=== PATIENT | female | born 1930 | race Caucasian/White ===

== ENCOUNTER 2016-11-29 19:32 | Inpatient (IN) ==
--- NOTE | 2016-11-29 19:41 | Emergency Department Note ---
Disposition Clinical Impression: Syncope and collapse, Atrial fibrillation with RVR, Dementia, Confusion, Elevated troponin, Head injury, Frail elderly, Hyperthyroidism Disposition: Admitted As Inpatient Referrals: Unassigned,Provider [Primary Care Provider] - Forms: ED Satisfaction Letter General Adult HPI - General Chief complaint: ED Syncope Stated complaint: Syncope/AMS Time Seen by Provider: 11/29/16 19:38 Source: EMS Limitations: altered mental status - History of Present Illness HPI Narrative: 86-year-old female reports that emergency department via EMS. The patient reportedly has a history of dementia but is generally capable of self-care. She went into [employer] this evening and was standing in line and had a witnessed syncopal event. She fell and hit her head. She was unconscious for a period of time EMS was notified and arrived at the scene, the patient revived and brought into the ED. On arrival the patient has no complaints, she does not really remember the events. She is not able to identify place or time, she does know her name. The patient denies any chest pain short of breath or abdominal pain. There is no history of neck pain or back pain. No history of antecedent cough and fever runny nose or pain sore throat vomiting diarrhea or fever. There is no history of headache neck stiffness rash bowel or bladder dysfunction or any trouble walking talking hearing seeing or speaking. No unilateral arm or leg numbness or weakness is reported or noted. There is no history of laceration or bleeding. The patient is unable to give a clear history, however witnesses report she [place] her [place]. The patient denies any complaints or concerns at this time. Onset (ago): [employer] Pain Scale: 0 - Related Data Previous Rx's Medication Instructions Recorded Acetaminophen [Tylenol] 325 mg PO Q6HR PRN #10 tablet 01/01/16 Ibuprofen [Motrin] 400 mg PO Q6-8H PRN #30 tablet 09/04/16 Sulfamethoxazole/Trimeth DS 1 each PO BID #10 tablet 11/27/16 [Bactrim DS] Allergies Allergy/AdvReac Type Severity Reaction Status Date / Time No Known Allergies Allergy Verified 11/29/16 19:33 Limitations: ROS unobtainable due to patients medical condition Past Medical History - Past Medical History Medical history: Reports: non-contributory, dementia Psychiatric history: Reports: no psych history - Social History Smoking Status: Never smoker Smokeless Tobacco Status: No Alcohol use: Reports: none Drug use: Reports: none Physical Exam - General Limitations: altered mental status, other (The patient is talkative but rambles and is apparently confused, she is alert and oriented to name only.) General appearance: alert, in no apparent distress - Head Head exam: atraumatic, normocephalic, normal inspection - Eye Eye exam: Present: normal appearance, PERRL, EOMI. Absent: scleral icterus, conjunctival injection, miosis, mydriasis - ENT ENT exam: normal exam, normal oropharynx, mucous membranes moist, TM's normal bilaterally, normal external ear exam - Neck Neck exam: Present: normal inspection, full ROM, trachea midline. Absent: tenderness, meningismus - Chest Chest inspection: Present: symmetric chest wall rise. Absent: tenderness - Respiratory Respiratory exam: Present: normal lung sounds bilaterally. Absent: respiratory distress - Cardiovascular Cardiovascular exam: Present: tachycardia, irregular rhythm - Abdominal Exam Abdominal exam: Present: soft, Non-Tender, normal bowel sounds. Absent: tenderness, distention, guarding, rebound, rigidity, trauma, pulsatile mass - Extremities Exam Extremities exam: Present: normal inspection, full ROM, normal capillary refill. Absent: tenderness, pedal edema, joint swelling, calf tenderness - Expanded Lower Extremity Exam Lower leg exam: Absent: Homans' sign Neurovascular/Tendon exam: Absent: motor deficit, sensory deficit, tendon deficit, extremity cold to touch, pallor - Back Exam Back exam: Present: normal inspection, full ROM. Absent: tenderness, CVA tenderness (R), CVA tenderness (L), vertebral tenderness - Neurological Exam Neurological exam: Present: alert, CN II-XII intact. Absent: oriented X3 ( Alert to name only.), motor sensory deficit - Psychiatric Psychiatric exam: Present: normal affect - Skin Skin exam: Present: warm, dry, intact, normal color. Absent: rash, cyanosis, diaphoresis, erythema, pallor, mottled Course Vital Signs Temperature 98.1 F 11/29/16 19:33 Pulse Rate 134 11/29/16 19:33 Respiratory Rate 16 11/29/16 19:33 Blood Pressure 102/87 11/29/16 19:33 O2 Sat by Pulse Oximetry 100 11/29/16 19:33 Temperature 98.1 F 11/29/16 19:33 Pulse Rate 152 11/29/16 21:14 Respiratory Rate 15 11/29/16 21:14 Blood Pressure 122/94 11/29/16 21:14 O2 Sat by Pulse Oximetry 96 11/29/16 21:14 Oxygen Delivery Oxygen Delivery Room Air Medical Decision Making - [facility] Narrative Medical decision making narrative: The patient had a syncopal event at [facility] and hit her head. There is no evidence of acute intracranial hemorrhage. The patient denies any chest pain. We have noticed her heart rate to be significantly elevated and she appears to be in atrial fibrillation with rapid ventricular response. She has some ST depressions and a significantly elevated troponin. Aspirin was ordered. Cardizem was initially ordered. The patient has no acute neurologic defects. She had a witnessed syncopal event. It appears to be a cardiogenic source. Based on her significant EKG and laboratory abnormalities as well as notable confusion, I thought it would be best to admit the patient to the hospital. I reviewed the case with the hospitalist on-call Dr. Dickinson who has accepted the patient to his care. The patient was given Cardizem 5 mg IV and a 5 mg/hr drip, Dr. Dickinson has asked for a 5 mg push of Lopressor as well. - Lab Data Lab results reviewed: Yes I reviewed the patient's lab results. Result diagrams: 11/29/16 19:52 11/29/16 19:52 Lab Results 11/29/16 11/29/16 11/29/16 Range/Units 19:52 19:52 19:52 WBC 14.7 H (4.3-11.1) K/mcL RBC 4.68 (3.82-4.97) M/mcL Hgb 13.3 (11.5-15.4) g/dL Hct 42.7 (35.3-44.9) % MCV 91.2 (83.0-100.0) fL MCH 28.4 (28.0-33.3) pg MCHC 31.1 L (31.6-35.5) g/dL RDW 13.1 (11.5-14.5) % Plt Count 248 (140-400) K/mcL MPV 11.5 (9.4-12.4) fL Immature Gran % 0.3 (0-4) % Seg Neutrophils % 79.9 % Lymphocytes % 12.2 % Monocytes % 6.1 % Eosinophils % 1.0 % Basophils % 0.5 % Neutrophils # 11.8 H (1.6-8.9) K/mcL Lymphocytes # 1.8 (0.6-4.6) K/mcL Monocytes # 0.9 (0.0-1.3) K/mcL Eosinophils # 0.1 (0.0-0.6) K/mcL Basophils # 0.1 (0.0-0.2) K/mcL PT 10.7 (9.4-12.1) Seconds INR 1.0 APTT 27.9 (26.0-36.0) Seconds Sodium 139 (136-145) mEq/L Potassium 4.4 (3.5-4.5) mEq/L Chloride 105 (98-109) mEq/L Carbon Dioxide 23 (19-29) mEq/L BUN 18 (7-20) mg/dL Creatinine 0.81 (0.57-1.11) mg/dL Est GFR ( Amer) > 60 (> 60) Est GFR (Non-Af Amer) > 60 (> 60) BUN/Creatinine Ratio 22 (6-26) Glucose 151 H (70-99) mg/dL POC Glucose (58-89) Calculated Osmolality 293 (280-300) Lactic Acid (0.5-2.2) mmol/L Calcium 9.4 (8.6-10.8) mg/dL Total Bilirubin 0.4 (0.2-1.2) mg/dL Direct Bilirubin 0.2 (0.0-0.5) mg/dL Indirect Bilirubin 0.2 (0.0-1.2) mg/dL AST 76 H (5-34) Units/L ALT 40 (0-55) Units/L Alkaline Phosphatase 87 (38-126) Units/L Ammonia (18-72) mcmol/L Creatine Kinase 279 H (29-168) Units/L Troponin I (0-0.03) ng/mL C-Reactive Protein 2 (Less than 5) mg/L Serum Total Protein 7.3 (6.0-8.3) g/dL Albumin 3.5 (3.5-5.0) g/dL Globulin 3.8 H (2.4-3.5) g/dL Albumin/Globulin Ratio 0.9 L (1.1-2.2) TSH 0.244 L (0.350-4.840) mcIU/mL Salicylates < 5.0 L (15-30) mg/dL Acetaminophen < 1.0 L (10-30) mcg/mL 11/29/16 11/29/16 11/29/16 Range/Units 19:52 19:52 19:52 WBC (4.3-11.1) K/mcL RBC (3.82-4.97) M/mcL Hgb (11.5-15.4) g/dL Hct (35.3-44.9) % MCV (83.0-100.0) fL MCH (28.0-33.3) pg MCHC (31.6-35.5) g/dL RDW (11.5-14.5) % Plt Count (140-400) K/mcL MPV (9.4-12.4) fL Immature Gran % (0-4) % Seg Neutrophils % % Lymphocytes % % Monocytes % % Eosinophils % % Basophils % % Neutrophils # (1.6-8.9) K/mcL Lymphocytes # (0.6-4.6) K/mcL Monocytes # (0.0-1.3) K/mcL Eosinophils # (0.0-0.6) K/mcL Basophils # (0.0-0.2) K/mcL PT (9.4-12.1) Seconds INR APTT (26.0-36.0) Seconds Sodium (136-145) mEq/L Potassium (3.5-4.5) mEq/L Chloride (98-109) mEq/L Carbon Dioxide (19-29) mEq/L BUN (7-20) mg/dL Creatinine (0.57-1.11) mg/dL Est GFR ( Amer) (> 60) Est GFR (Non-Af Amer) (> 60) BUN/Creatinine Ratio (6-26) Glucose (70-99) mg/dL POC Glucose (58-89) Calculated Osmolality (280-300) Lactic Acid 1.5 (0.5-2.2) mmol/L Calcium (8.6-10.8) mg/dL Total Bilirubin (0.2-1.2) mg/dL Direct Bilirubin (0.0-0.5) mg/dL Indirect Bilirubin (0.0-1.2) mg/dL AST (5-34) Units/L ALT (0-55) Units/L Alkaline Phosphatase (38-126) Units/L Ammonia 18 (18-72) mcmol/L Creatine Kinase (29-168) Units/L Troponin I 3.82 H* (0-0.03) ng/mL C-Reactive Protein (Less than 5) mg/L Serum Total Protein (6.0-8.3) g/dL Albumin (3.5-5.0) g/dL Globulin (2.4-3.5) g/dL Albumin/Globulin Ratio (1.1-2.2) TSH (0.350-4.840) mcIU/mL Salicylates (15-30) mg/dL Acetaminophen (10-30) mcg/mL 11/29/16 Range/Units 19:58 WBC (4.3-11.1) K/mcL RBC (3.82-4.97) M/mcL Hgb (11.5-15.4) g/dL Hct (35.3-44.9) % MCV (83.0-100.0) fL MCH (28.0-33.3) pg MCHC (31.6-35.5) g/dL RDW (11.5-14.5) % Plt Count (140-400) K/mcL MPV (9.4-12.4) fL Immature Gran % (0-4) % Seg Neutrophils % % Lymphocytes % % Monocytes % % Eosinophils % % Basophils % % Neutrophils # (1.6-8.9) K/mcL Lymphocytes # (0.6-4.6) K/mcL Monocytes # (0.0-1.3) K/mcL Eosinophils # (0.0-0.6) K/mcL Basophils # (0.0-0.2) K/mcL PT (9.4-12.1) Seconds INR APTT (26.0-36.0) Seconds Sodium (136-145) mEq/L Potassium (3.5-4.5) mEq/L Chloride (98-109) mEq/L Carbon Dioxide (19-29) mEq/L BUN (7-20) mg/dL Creatinine (0.57-1.11) mg/dL Est GFR ( Amer) (> 60) Est GFR (Non-Af Amer) (> 60) BUN/Creatinine Ratio (6-26) Glucose (70-99) mg/dL POC Glucose 136 H (58-89) Calculated Osmolality (280-300) Lactic Acid (0.5-2.2) mmol/L Calcium (8.6-10.8) mg/dL Total Bilirubin (0.2-1.2) mg/dL Direct Bilirubin (0.0-0.5) mg/dL Indirect Bilirubin (0.0-1.2) mg/dL AST (5-34) Units/L ALT (0-55) Units/L Alkaline Phosphatase (38-126) Units/L Ammonia (18-72) mcmol/L Creatine Kinase (29-168) Units/L Troponin I (0-0.03) ng/mL C-Reactive Protein (Less than 5) mg/L Serum Total Protein (6.0-8.3) g/dL Albumin (3.5-5.0) g/dL Globulin (2.4-3.5) g/dL Albumin/Globulin Ratio (1.1-2.2) TSH (0.350-4.840) mcIU/mL Salicylates (15-30) mg/dL Acetaminophen (10-30) mcg/mL - Radiology Data Radiology results reviewed: Yes I reviewed the patient's radiology results.
[2016-11-29 20:00] LABS: Basophils # 0.1 K/mcL (0.0-0.2); Basophils % 0.5 %; Eosinophils # 0.1 K/mcL (0.0-0.6); Hematocrit 42.7 % (35.3-44.9); Hemoglobin 13.3 g/dL (11.5-15.4); Immature Granulocytes % 0.3 % (0-4); Lymphocytes # 1.8 K/mcL (0.6-4.6); Lymphocytes % 12.2 %; Mean Corpuscular HGB Conc 31.1 g/dL (31.6-35.5); Mean Corpuscular Hemoglobin 28.4 pg (28.0-33.3); Mean Corpuscular Volume 91.2 fL (83.0-100.0); Mean Platelet Volume 11.5 fL (9.4-12.4); Monocytes # 0.9 K/mcL (0.0-1.3); Monocytes % 6.1 %; Neutrophils # 11.8 K/mcL (1.6-8.9); Platelet Count 248 K/mcL (140-400); Red Blood Count 4.68 M/mcL (3.82-4.97); Red Cell Distribution Width 13.1 % (11.5-14.5); Segmented Neutrophils % 79.9 %
[2016-11-29 20:05] LABS: Prothrombin Time 10.7 Seconds (9.4-12.1)
[2016-11-29 20:08] LABS: Activated Partial Thrombo Time 27.9 Seconds (26.0-36.0)
[2016-11-29] MEDS ORDERED: 0.9 % Sodium Chloride 1,000 ML IVC ONE (20:12)
[2016-11-29 20:14] LABS: C-Reactive Protein 2 mg/L (Less than 5)
[2016-11-29 20:16] LABS: Alanine Aminotransferase 40 Units/L (0-55); Albumin 3.5 g/dL (3.5-5.0); Albumin/Globulin Ratio 0.9 (1.1-2.2); Alkaline Phosphatase 87 Units/L (38-126); Aspartate Amino Transferase 76 Units/L (5-34); BUN/Creatinine Ratio 22 (6-26); Bilirubin,Direct 0.2 mg/dL (0.0-0.5); Bilirubin,Indirect 0.2 mg/dL (0.0-1.2); Bilirubin,Total 0.4 mg/dL (0.2-1.2); Blood Urea Nitrogen 18 mg/dL (7-20); Calcium 9.4 mg/dL (8.6-10.8); Carbon Dioxide 23 mEq/L (19-29); Chloride 105 mEq/L (98-109); Creatine Kinase 279 Units/L (29-168); Globulin 3.8 g/dL (2.4-3.5); Glucose 151 mg/dL (70-99); Osmolality,Calculated 293 (280-300); Potassium 4.4 mEq/L (3.5-4.5); Sodium 139 mEq/L (136-145); Total Protein 7.3 g/dL (6.0-8.3); eGFR For African Americans > 60 (> 60); eGFR For Non-African Americans > 60 (> 60)
[2016-11-29 20:17] LABS: Acetaminophen < 1.0 mcg/mL (10-30); Salicylate < 5.0 mg/dL (15-30)
[2016-11-29] MEDS ORDERED: Aspirin 325 MG TABLET PO ONE (20:25)
[2016-11-29 20:36] LABS: Thyroid Stimulating Hormone 0.244 mcIU/mL (0.350-4.840)
[2016-11-29] MEDS ORDERED: *HR* Metoprolol 5 MG/5 ML VIAL IVP ONE (21:14)
[2016-11-29] MEDS ORDERED: 0.9 % Sodium Chloride 1,000 ML ONE (22:56)
[2016-11-30] MEDS ORDERED: *HR* OxyCODONE Immed Rel 5 MG TABLET PO PRN (00:21)
[2016-11-30] MEDS ORDERED: *HR* Heparin 5,000 UNIT/ML VIAL IVP PRN ×2 (00:21)
[2016-11-30] MEDS ORDERED: Ondansetron 4 MG/2 ML VIAL IVP PRN (00:21)
[2016-11-30] MEDS ORDERED: Acetaminophen 325 MG TABLET PO PRN (00:21)
[2016-11-30] MEDS ORDERED: Nitroglycerin 0.4 MG TAB.SUBL SL PRN (00:21)
[2016-11-30] MEDS ORDERED: *HR* Morphine 2 MG/ML SYRINGE IVP PRN (00:21)
[2016-11-30] MEDS ORDERED: Benzonatate 100 MG CAPSULE PO PRN (00:21)
[2016-11-30] MEDS ORDERED: *HR* Metoprolol 5 MG/5 ML VIAL IVP PRN (00:21)
[2016-11-30] MEDS ORDERED: Aspirin Enteric Coated 325 MG Tablet PO STA (00:21)
[2016-11-30] MEDS ORDERED: *HR* Heparin 5,000 UNIT/ML VIAL IVP ONE (00:21)
[2016-11-30] MEDS ORDERED: Naloxone 0.4 MG/ML INJ IVP PRN (00:21)
[2016-11-30] MEDS ORDERED: 0.9 % Sodium Chloride 1,000 ML IVC SCH (00:30)
--- NOTE | 2016-11-30 00:48 | Internal Med History&Physical ---
Date of Encounter: 11/29/16 Time of Encounter: 23:50 Assessment and Plan (1) Syncope due to orthostatic hypotension Current visit: Yes Status: Acute . (2) Syncope, cardiogenic Current visit: Yes Status: Acute . (3) Demand ischemia of myocardium Current visit: Yes Status: Acute . (4) Non-ST elevation myocardial infarction (NSTEMI) due to mismatch of myocardial oxygen supply and demand Current visit: Yes Status: Acute . (5) Acute encephalopathy Current visit: Yes Status: Acute . (6) Closed head injury Current visit: Yes Status: Acute . Qualifiers: Encounter type: initial encounter Qualified Code(s): S09.90XA - Unspecified injury of head, initial encounter (7) Dementia arising in the senium and presenium Current visit: Yes Status: Chronic . (8) Elevated CPK Current visit: Yes Status: Acute . (9) Elevated troponin I measurement Current visit: Yes Status: Acute . (10) Atrial fibrillation with RVR Current visit: Yes Status: Acute . (11) Frail elderly Current visit: Yes Status: Acute . (12) Hyperthyroidism Current visit: Yes Status: Acute . (13) Syncope and collapse Current visit: Yes Status: Acute . (14) Abrasion Current visit: Yes Status: Acute . (15) SIRS (systemic inflammatory response syndrome) Current visit: Yes Status: Acute . (16) Diastolic CHF Current visit: Yes Status: Chronic . Qualifiers: Congestive heart failure chronicity: chronic Qualified Code(s): I50.32 - Chronic diastolic (congestive) heart failure (17) COPD (chronic obstructive pulmonary disease) Current visit: Yes Status: Chronic . Qualifiers: COPD type: unspecified COPD Qualified Code(s): J44.9 - Chronic obstructive pulmonary disease, unspecified (18) Recent urinary tract infection Current visit: Yes Status: Acute . (19) Acute maxillary sinusitis, unspecified Current visit: Yes Status: Acute . Qualifiers: Recurrence: not specified as recurrent Qualified Code(s): J01.00 - Acute maxillary sinusitis, unspecified (20) DDD (degenerative disc disease), cervical Current visit: Yes Status: Chronic . Internal Medicine - H&P: HPI Chief complaint: Mental status. Loss of consciousness. Admitted From: Emergency Dept Plans for Post Hospital Care: Home History of present illness: Ms. Mcdermott is a 86 year old female history significant for mild dementia unspecified, diastolic CHF, COPD, osteoarthritis, osteoporosis, degenerative disc disease of the spine, nonsmoker. The patient was visited and interviewed and examined. She was admitted to [facility] via the emergency department when she presented by EMS services from a local grocery store with complaints of loss of consciousness. The patient has a history of mild dementia but generally is careful of self-care , maintenance of her day-to-day needs of daily living, transportation etc. Lives alone. 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 She reports being at her normal baseline status prior to today's events. Had recently been prescribed an sulfa antibiotic to address a urinary tract infection which she believes she had never taken before. Approximately 3 hours later she was standing in line at [employer] and had an acute syncopal event which was witnessed by bystanders. She fell and hit her head. She was reportedly been unconscious for a period of time. The arrival of EMS services. When he arrived at the scene the patient had profile and was brought to the emergency department for further evaluation. She reported no complaints other than amazement of what had occurred. She was unable to remember the events leading up to and following loss of consciousness. Initially she was unable to express her name the place or time when confronted. He denies any limiting pains or weakness. Denied chest pain shortness of breath abdominal pain neck pain and flank pain and back pain. She denied any antecedent upper respiratory complaints such as cough, runny nose throat fever. Denied any nausea vomiting or diarrhea complaints. She denied any recent episodes of severe headache and stiff neck bowel or bladder dysfunction walking speaking during seeing the memory deficits. Today's events. She denied any unilateral weakness numbness or seizure-like activity. Denies any ongoing medical treatments or any over-the- counter or recreational indiscretions. Findings In the ED: Temperature 98.1 pulse 130-152 respirations 16 BP 100-122/87-94. O2 saturation 96-100% room air. Heart rhythm was irregularly irregular consistent with atrial fibrillation with RVR. WBC 14.7 hemoglobin 13.3 platelets 248,000. Differential showed an increase in neutrophils. PT 10.7 INR 1 PTT 27.9. Metabolic panel was normal. BUN 18 creatinine 0.81. Glucose 151 and osmolality 293. AST 76. C-reactive protein 2. Creatinine kinase 279. TSH 0.4. Salicylates less than 5. Acetaminophen less than 1. Lactic acid 1.5. Ammonia 18. Troponin 3.82. EKG demonstrated nonspecific ST-T wave changes in the setting of atrial fibrillation. Chest x-ray demonstrated no acute cardiopulmonary process. Cardiomegaly with atherosclerotic changes of the aorta was evident. Chronic appearing bilateral interstitial opacities noted in the salon as well as bilateral emphysematous changes. Osseous structures demonstrated that the extra convex to the thoracic spine but no acute fracture. Structures were osteopenic. Hydroxyapatite deposition of the right shoulder noted incidentally. CT head scan without contrast demonstrated mild left temporal scalp subcutaneous soft tissue swelling. No acute intracranial abnormality. Mild parenchymal volume loss. Moderate chronic microvascular disease. Right maxillary sinusitis. No acute intracranial hemorrhage, mass effect, midline shift or fluid collection. No evidence of acute territorial infarction. No evidence of hydrocephalus. Partial opacification of the right maxillary sinus. Retention cyst versus polyp left maxillary sinus. Remainder of paranasal sinuses and mastoid air cells mostly clear. No evidence of acute skull fracture. CT cervical spine without contrast demonstrated no acute abnormality of the cervical spine. Mild height loss of T1 vertebral body, although age indeterminate, likely chronic. Mild chronic height loss C5, C6 and C7 vertebral bodies. Osteopenia. 3 date of normal cervical lordosis. No evidence of acute cervical spine fracture. Normal alignment of the cervical spine. Multilevel degenerative disc disease with disc space narrowing, endplate changes and endplate osteophyte formation. No prevertebral soft tissue swelling noted. Mild to moderate atherosclerotic disease of the aortic arch and bilateral carotid bulbs noted incidentally. The patient was administered the aspirin dose plus Cardizem drip initiated for rate control. ( No acute neurologic deficits were apparent short of patient's disorientation found to gradually improve at triage.) Preliminary impression suggest acute, new onset atrial fibrillation RVR associated with ACS/non-ST elevation myocardial infarction type II demand ischemia with associated cardiogenic syncope. Medication may have been elicited by concurrent laboratory response to apparent urinary tract and maxillary sinus infections to the Bactrim DS doses taken earlier in the day. She denied any prodromal complaints of postural dizziness weakness shortness of air or acute incapacitation. Screening studies suggest systemic inflammatory response syndrome criteria are met at the time of admission. Given the presence of the sinusitis and and UTI per patient report (urinalysis pending) sepsis criteria and also met at time of admission. He was a trauma experienced with her syncope was minimal. Disorientation seen may indeed be a reflection of her underlying dementia plus or syncope. Cannot rule out completely postconcussion syndrome effect at this time. Further assessment is warranted. The patient presents at further risk for acute clinical decline and morbidity given this presenting similar problems , clinical findings, advanced age, frailty and comorbidities. Workup and treatment will progress comprehensively. Cumulative laboratory and radiographic data base was reviewed, considered and discussed. Pertinent ancillary medical records including ECW and PCI documentation was reviewed and considered. Given the patient's presenting concerns, past medical history, clinical findings and symptoms, she is admitted at this time will undergo further evaluation and disposition. Orders were written as per the computerized physician stock order lister system.......................................................................... .................... Consultative opinions will be sought as clinical circumstances justify. Initial consultative request submitted to cardiology. Pain management needs will be addressed. community services manager/case management consultation will be requested to assist in discharge planning goals, establishment of continuity of care needs and final disposition. Laboratory and radiographic data base will be updated as appropriate. Studies include: Cultures blood and urine and sputum, PT/INR, APTT, cardiac injury panel , BNP, CPK, prolactin, metabolic and hematologic panel, magnesium, phosphorus, ionized calcium, thyroid panel, lipid profile, A1c, C-peptide, CRP, sedimentation rate, respiratory infection profile, respiratory virus panel, blood gas, lactic acid, UA, serologies, etc. Precautions: Aspiration, fall, seizure, delirium protocol/surveillance initiated. Telemetry with continuous hemodynamic monitoring and pulse oximetry initiated. Orthostatic vital signs. Empiric antibody coverage: Intravenous Rocephin and azithromycin pending culture data. Special studies: CT chest, CT head/brain, CT cervical spine, chest x-ray, telemetry, EKG, echocardiogram, carotid US, bladder scan, postvoid. Pulmonary toilet: Incentive spirometry. Aerosol bronchodilator, mucolytic, antitussive. Supplemental oxygen. Corticosteroid therapy PRN. CPAP/BiPAP supplemental oxygen deliveryPRN. Aerosol Mucomyst therapyPRN. Fluid and electrolyte repletion efforts will proceed. Careful attention to fluid balance and renal recovery will be emphasized. Avoidance of nephrotoxic exposure and adverse drug drug interaction in the setting of impaired renal function will be monitored closely. Acute coronary syndrome protocol/surveillance initiated. Intravenous diltiazem loading dose and diltiazem drip initiated for rate control. Intravenous digoxin titration 3. Correction of metabolic and electrolyte deficits. Intravenous heparin drip, low dose ACS protocols initiated. DVT and PUD prophylaxis initiated: PPI therapy, intermittent pneumatic cuffs. Subcutaneous heparin was held due to thrombocytopenia. Early ambulation will be encouraged. Immunization updates recommended. Influenza and pneumococcal vaccinations as part of ongoing preventative healthcare recommendations strongly recommended. Smoking cessation counseling briefly addressed. Patient is a nonsmoker. Advanced care directive discussion briefly addressed. Patient does not declare any healthcare restrictions at this time. Cardiovascular risk appraisal and cardiovascular risk reduction efforts will be emphasized. Physical and occupational therapy may be consulted to evaluate patient's functional capacity and progress mobility if her circumstances justify. Nutrition/dietary education counseling may be considered as circumstances permit. Outpatient medication schedules will be reviewed, confirmed and facilitated as appropriate. Reconciliation of home treatments including adjustments, substitutions and reintroduction into the treatment regimen will address necessary maintenance therapies for chronic pre-existing medical conditions. Plan of care has been reviewed and discussed in detail with the patient. Questions addressed. Hospital course will depend upon clinical findings, treatment response and potential consultative interventions. Patient is at risk for further acute clinical decline and morbidity due to her advanced age, presenting chief complaints, findings and comorbidities. Condition is serious. Prognosis is guarded. CODE STATUS is full. Past Med Surg Social Fam HX - Past Medical History Source: old records reviewed Medical history: arthritis, CHF, COPD, dementia, osteoporosis, other Psychiatric history: no psych history, other - Past Surgical History Surgical History: non-contributory, other - Social History Smoking Status: Never smoker Smokeless Tobacco Status: No Alcohol use: none Drug use: none Occupational status: retired Current living situation: Home - Independent Activity Level: Independent ambulation, Mostly sedentary Recent Out of Country Travel Within the Last 8 Weeks: No Exposure or Possible Exposure to Illness During Travel: No - Family History Mother Living Status: Internal Medicine - H&P: Meds Acetaminophen [Tylenol] 325 mg PO Q6HR PRN #10 tablet 01/01/16 [Rx] Ibuprofen [Motrin] 400 mg PO Q6-8H PRN #30 tablet 09/04/16 [Rx] Sulfamethoxazole/Trimeth DS [Bactrim DS] 1 each PO BID #10 tablet 11/27/16 [Rx] Allergies No Known Allergies Allergy (Verified 11/29/16 19:33) ROS unobtainable: due to mental status All Systems PM: A 10-system review of systems was performed and is negative for pertinent findings except as documented above in the HPI. Patient presented very limited historian of her circumstance and events. No details is dependent on EMS and ancillary staff triage information and review of medical records. - Constitutional Constitutional: as per HPI - EENT Eyes: as per HPI Ears: as per HPI Nose, mouth and throat: as per HPI - Cardiovascular Cardiovascular ROS IM: as per HPI - Respiratory Respiratory: as per HPI - Gastrointestinal Gastrointestinal: as per HPI - Genitourinary Genitourinary: as per HPI - Musculoskeletal Musculoskeletal ROS IM: as per HPI - Integumentary Integumentary IM: as per HPI - Neurological Neurological ROS: as per HPI - Psychiatric Psychiatric: as per HPI - Endocrine Endocrine IM: as per HPI - Hematologic/Lymphatic Hematologic/Lymphatic: as per HPI - Allergic/Immunologic Allergic/Immunologic: as per HPI - Constitutional Vitals: Temp Pulse Resp BP Pulse Ox 98.8 F 133 16 109/82 96 11/29/16 22:37 11/29/16 22:53 11/29/16 22:37 11/29/16 22:37 11/29/16 22:37 General appearance: Present: cachectic, cooperative, A&O X 1, disheveled, no acute distress, underweight - Head Head exam: Present: normocephalic - Expanded Head Exam Head exam expanded: Present: abrasion, contusion - Eye Eye exam: Present: EOMI, PERRL, conjuntiva pink, sclera anicteric Pupils: Present: normal accommodation, PERRL - ENT ENT exam: Present: mucous membranes moist, normal oropharynx - Neck Neck exam general surgery: Present: full ROM, supple, trachea midline. Absent: lymphadenopathy - Respiratory Respiratory exam: Present: decreased breath sounds. Absent: accessory muscle use, rales, rhonchi, wheezes - Cardiovascular Cardiovascular exam: Present: distant heart sounds, irregular rhythm, +S1, +S2, tachycardia. Absent: diastolic murmur, gallop, rubs, systolic murmur - GI/Abdominal GI/Abdominal exam: Present: normal bowel sounds, soft, no peritoneal signs. Absent: distended, tenderness - Extremities Exam Extremities exam: Present: full ROM, warm, radial pulses palpable and symetrical. Absent: calf tenderness, cyanotic, pedal edema - Neurological Exam Neurological exam: Present: alert, altered, CN II-XII intact, no focal deficits. Absent: oriented X3, pronater drift, facial droop, speech deficit - Expanded Neurological Exam Neurological exam expanded: Present: protecting the airway. Absent: ataxia, expressive aphasia, receptive aphasia, tremor Patient oriented to: Present: person. Absent: place Speech: Present: fluid speech Coma Scale Eye Opening: Spontaneous Coma Scale Motor Response: Obeys Commands Coma Scale Verbal Response: Inappropriate Coma Scale Total: 13 - Psychiatric Psychiatric exam: Present: anxious, normal affect - Skin Skin exam: Present: dry, intact, warm. Absent: petechiae, rash, urticaria, vesicles Internal Med - H&P Results - Labs CBC & Chem 7: 11/30/16 00:51 11/30/16 00:51 - Impressions Vital Signs Temp Pulse Resp BP Pulse Ox 11/29/16 22:53 133 11/29/16 22:37 98.8 F 126 16 109/82 96 11/29/16 22:26 16 104/75 11/29/16 22:24 121 16 104/75 97 11/29/16 21:59 117 14 95/75 98 11/29/16 21:36 138 14 89/46 98 11/29/16 21:14 152 15 122/94 96 11/29/16 20:50 160 16 115/78 98 11/29/16 20:30 151 16 114/85 97 11/29/16 19:33 98.1 F 134 16 102/87 100 Intake and Output 11/29/16 11/29/16 11/30/16 15:59 23:59 07:59 Intake Total 1000 / 1000 Output Total 0 / 0 Balance 1000 / 1000 Intake: IV Fluids 1000 / 1000 0.9 % Sodium Chloride 1, 1000 / 1000 000 ML @ 3750 mls/hr IVC .Q16M ONE Rx#:[id number] Oral 0 / 0 Output: Urine 0 / 0 Other: Weight 52.163 kg Blood Glucose* 136 Short CBC 11/29/16 Range/Units 19:52 WBC 14.7 H (4.3-11.1) K/mcL Hgb 13.3 (11.5-15.4) g/dL Hct 42.7 (35.3-44.9) % Plt Count 248 (140-400) K/mcL Neutrophils # 11.8 H (1.6-8.9) K/mcL BMP 11/29/16 Range/Units 19:52 Sodium 139 (136-145) mEq/L Potassium 4.4 (3.5-4.5) mEq/L Chloride 105 (98-109) mEq/L Carbon Dioxide 23 (19-29) mEq/L BUN 18 (7-20) mg/dL Creatinine 0.81 (0.57-1.11) mg/dL Glucose 151 H (70-99) mg/dL Calcium 9.4 (8.6-10.8) mg/dL Cardiac Enzymes 11/29/16 Range/Units 19:52 Troponin I 3.82 H* (0-0.03) ng/mL Liver Function 11/29/16 Range/Units 19:52 Total Bilirubin 0.4 (0.2-1.2) mg/dL Direct Bilirubin 0.2 (0.0-0.5) mg/dL AST 76 H (5-34) Units/L ALT 40 (0-55) Units/L Alkaline Phosphatase 87 (38-126) Units/L Albumin 3.5 (3.5-5.0) g/dL Abnormal lab results WBC 14.7 K/mcL (4.3-11.1) H 11/29/16 19:52 MCHC 31.1 g/dL (31.6-35.5) L 11/29/16 19:52 Neutrophils # 11.8 K/mcL (1.6-8.9) H 11/29/16 19:52 Glucose 151 mg/dL (70-99) H 11/29/16 19:52 POC Glucose 136 (58-89) H 11/29/16 19:58 AST 76 Units/L (5-34) H 11/29/16 19:52 Creatine Kinase 279 Units/L (29-168) H 11/29/16 19:52 Troponin I 3.82 ng/mL (0-0.03) H* 11/29/16 19:52 Globulin 3.8 g/dL (2.4-3.5) H 11/29/16 19:52 Albumin/Globulin Ratio 0.9 (1.1-2.2) L 11/29/16 19:52 TSH 0.244 mcIU/mL (0.350-4.840) L 11/29/16 19:52 Salicylates < 5.0 mg/dL (15-30) L 11/29/16 19:52 Acetaminophen < 1.0 mcg/mL (10-30) L 11/29/16 19:52 Allergies Allergy/AdvReac Type Severity Reaction Status Date / Time No Known Allergies Allergy Verified 11/29/16 19:33 Allergies Allergy/AdvReac Type Severity Reaction Status Date / Time No Known Allergies Allergy Verified 11/29/16 19:33 Laboratory Results WBC 14.7 K/mcL (4.3-11.1) H 11/29/16 19:52 RBC 4.68 M/mcL (3.82-4.97) 11/29/16 19:52 Hgb 13.3 g/dL (11.5-15.4) 11/29/16 19:52 Hct 42.7 % (35.3-44.9) 11/29/16 19:52 MCV 91.2 fL (83.0-100.0) 11/29/16 19:52 MCH 28.4 pg (28.0-33.3) 11/29/16 19:52 MCHC 31.1 g/dL (31.6-35.5) L 11/29/16 19:52 RDW 13.1 % (11.5-14.5) 11/29/16 19:52 Plt Count 248 K/mcL (140-400) 11/29/16 19:52 MPV 11.5 fL (9.4-12.4) 11/29/16 19:52 Immature Gran % 0.3 % (0-4) 11/29/16 19:52 Seg Neutrophils % 79.9 % 11/29/16 19:52 Lymphocytes % 12.2 % 11/29/16 19:52 Monocytes % 6.1 % 11/29/16 19:52 Eosinophils % 1.0 % 11/29/16 19:52 Basophils % 0.5 % 11/29/16 19:52 Neutrophils # 11.8 K/mcL (1.6-8.9) H 11/29/16 19:52 Lymphocytes # 1.8 K/mcL (0.6-4.6) 11/29/16 19:52 Monocytes # 0.9 K/mcL (0.0-1.3) 11/29/16 19:52 Eosinophils # 0.1 K/mcL (0.0-0.6) 11/29/16 19:52 Basophils # 0.1 K/mcL (0.0-0.2) 11/29/16 19:52 PT 10.7 Seconds (9.4-12.1) 11/29/16 19:52 INR 1.0 11/29/16 19:52 APTT 27.9 Seconds (26.0-36.0) 11/29/16 19:52 Sodium 139 mEq/L (136-145) 11/29/16 19:52 Potassium 4.4 mEq/L (3.5-4.5) 11/29/16 19:52 Chloride 105 mEq/L (98-109) 11/29/16 19:52 Carbon Dioxide 23 mEq/L (19-29) 11/29/16 19:52 BUN 18 mg/dL (7-20) 11/29/16 19:52 Creatinine 0.81 mg/dL (0.57-1.11) 11/29/16 19:52 Est GFR ( Amer) > 60 (> 60) 11/29/16 19:52 Est GFR (Non-Af Amer) > 60 (> 60) 11/29/16 19:52 BUN/Creatinine Ratio 22 (6-26) 11/29/16 19:52 Glucose 151 mg/dL (70-99) H 11/29/16 19:52 POC Glucose 136 (58-89) H 11/29/16 19:58 Calculated Osmolality 293 (280-300) 11/29/16 19:52 Lactic Acid 1.5 mmol/L (0.5-2.2) 11/29/16 19:52 Calcium 9.4 mg/dL (8.6-10.8) 11/29/16 19:52 Total Bilirubin 0.4 mg/dL (0.2-1.2) 11/29/16 19:52 Direct Bilirubin 0.2 mg/dL (0.0-0.5) 11/29/16 19:52 Indirect Bilirubin 0.2 mg/dL (0.0-1.2) 11/29/16 19:52 AST 76 Units/L (5-34) H 11/29/16 19:52 ALT 40 Units/L (0-55) 11/29/16 19:52 Alkaline Phosphatase 87 Units/L (38-126) 11/29/16 19:52 Ammonia 18 mcmol/L (18-72) 11/29/16 19:52 Creatine Kinase 279 Units/L (29-168) H 11/29/16 19:52 Troponin I 3.82 ng/mL (0-0.03) H* 11/29/16 19:52 C-Reactive Protein 2 mg/L (Less than 5) 11/29/16 19:52 Serum Total Protein 7.3 g/dL (6.0-8.3) 11/29/16 19:52 Albumin 3.5 g/dL (3.5-5.0) 11/29/16 19:52 Globulin 3.8 g/dL (2.4-3.5) H 11/29/16 19:52 Albumin/Globulin Ratio 0.9 (1.1-2.2) L 11/29/16 19:52 TSH 0.244 mcIU/mL (0.350-4.840) L 11/29/16 19:52 Salicylates < 5.0 mg/dL (15-30) L 11/29/16 19:52 Acetaminophen < 1.0 mcg/mL (10-30) L 11/29/16 19:52 Impressions Chest X-Ray 11/29/16 19:38 IMPRESSION: 1. No acute cardiopulmonary process. 2. Cardiomegaly. 3. Chronic lung changes likely reflecting COPD. 4. Osteopenia. D/ / Evans Palacio MD / Evans Palacio MD Interpreting Provider: Evans Palacio MD Head CT 11/29/16 19:39 IMPRESSION: Mild left temporal scalp subcutaneous soft tissue swelling. No acute intracranial abnormality. Mild parenchymal volume loss. Moderate chronic microvascular disease. Right maxillary sinusitis. D/ / Tyson Carolina MD / Tyson Carolina MD Interpreting Provider: Tyson Carolina MD Cervical Spine CT 11/29/16 19:40 IMPRESSION: No acute abnormality of the cervical spine. Mild height loss of the T1 vertebral body, although age-indeterminate, likely chronic. Mild chronic height loss of C5, C6 and C7 vertebral bodies. D/ / Tyson Carolina MD / Tyson Carolina MD Interpreting Provider: Tyson Carolina MD
[2016-11-30 01:05] LABS: Hematocrit 37.9 % (35.3-44.9); Mean Corpuscular HGB Conc 31.7 g/dL (31.6-35.5); Mean Corpuscular Hemoglobin 28.7 pg (28.0-33.3); Mean Corpuscular Volume 90.7 fL (83.0-100.0); Mean Platelet Volume 11.8 fL (9.4-12.4); Platelet Count 227 K/mcL (140-400); Red Blood Count 4.18 M/mcL (3.82-4.97); Red Cell Distribution Width 13.2 % (11.5-14.5)
[2016-11-30 01:07] LABS: VBG HCO3 27.2 mEq/L (21-27); VBG PH 7.38 pH Units (7.32-7.42)
[2016-11-30 01:11] LABS: Prothrombin Time 11.2 Seconds (9.4-12.1)
[2016-11-30 01:13] LABS: Activated Partial Thrombo Time 28.5 Seconds (26.0-36.0); Hemoglobin A1C 5.7 %
[2016-11-30 01:19] LABS: Magnesium 1.8 mg/dL (1.6-2.6); Phosphorous 3.4 mg/dL (2.3-4.7)
[2016-11-30 01:21] LABS: BUN/Creatinine Ratio 22 (6-26); Blood Urea Nitrogen 16 mg/dL (7-20); C-Reactive Protein 2 mg/L (Less than 5); Calcium 8.5 mg/dL (8.6-10.8); Carbon Dioxide 23 mEq/L (19-29); Chloride 110 mEq/L (98-109); Chol/HDL Ratio 2.7 (0-4.9); Cholesterol 176 mg/dL (< 200); Glucose 125 mg/dL (70-99); HDL Cholesterol 66 mg/dL (40-59); LDL Cholesterol,Calculated 99 mg/dL (0-99); Osmolality,Calculated 293 (280-300); Potassium 4.5 mEq/L (3.5-4.5); Sodium 140 mEq/L (136-145); Triglycerides 53 mg/dL (< 150); eGFR For African Americans > 60 (> 60); eGFR For Non-African Americans > 60 (> 60)
[2016-11-30 01:22] LABS: Ionized Calcium 1.17 mmol/L (1.15-1.35)
[2016-11-30 01:43] LABS: Prolactin 5.57 ng/mL (5.18-26.53)
[2016-11-30 01:46] LABS: Triiodothyronine (T3) Free 2.81 pg/mL (1.71-3.71)
[2016-11-30] MEDS: Heparin 25,000 UNIT/500 ML D5W 25,000 UNIT/500 ML MLS IVC SCH (01:51)
[2016-11-30] MEDS ORDERED: *HR* Digoxin 0.5 MG/2 ML AMPUL IVP STA (02:36)
[2016-11-30] MEDS: *HR* Digoxin 0.5 MG/2 ML AMPUL IVP SCH ×2 (06:19→11:19)
[2016-11-30] MEDS: Aspirin 81 MG TAB.CHEW PO SCH (07:45)
[2016-11-30] MEDS: Loratadine 10 MG TABLET PO SCH (07:45)
--- NOTE | 2016-11-30 10:15 | Cardiology Consult Note ---
<Minerva Amato Velma - Last Filed: 11/30/16 10:57> Date of Encounter: 11/30/16 Time of Encounter: 09:00 Assessment and Plan (1) NSTEMI (non-ST elevated myocardial infarction) Current Visit: Yes Status: Acute NSTEMI I vs. II--elevated troponin 3.85, 4.03, 3.82 in the setting of syncopal event and fall. It is unclear how long patient was down. ECG upon presentation shows afib with RVR. She is chest pain free. She is confused at bedside, recommend medical management for now--continue IV heparin gtt for 24-48 hours. Continue asa, statin, and betablocker. Check echocardiogram. No indication for cardiac rehab at this time. Will continue to follow. (2) Atrial fibrillation with RVR Current Visit: Yes Status: Acute Unclear if patient has hx of Afib--listed in H&P. Does not appear that patient was on AC at home. Presented with Afib with RVR--now SR. Continue betablocker for rate control now. On Heparin gtt. CHA2Ds Vasc=2 (age, female); will need to determine if patient is candidate for AC prior to discharge. (3) Syncope and collapse Current Visit: Yes Status: Acute Unclear etiology. Discussion w patient/family: The assessment and plan as outlined above was discussed with the patient and/or family members who expressed understanding and agreement. All questions were answered. Thank you for involving us in the care of your patient. Please call with any questions. The patient will be discussed and reviewed with Dr. Lott, changes to be made accordingly. History of Present Illness Consult date: 11/30/16 Requesting physician: Bacilio Melton Consult reason: Elevated troponin Chief complaint: Syncope History of present illness: Ms. Mcdermott is a 86 year old female with past medical history significant for OA, dCHF, afib, COPD, and OA who presented to [facility] ED after a syncopal event at [facility]; it is unclear per EMS documentation how long patient was down. HPI and PMH obtained from H&P and old records as patient is confused upon exam. She reports that she "took a pill" for possible UTI and symptoms soon started after dose; however, daughter called and said that oral ATB was given d/t wound on toe after fall at [employer] a few weeks ago. Apparently patient lives at home independently and still drives. Past Med Surg Social Fam HX - Past Medical History Source: old records reviewed, obtained from family Medical history: arthritis, CHF (reported diastolic per H&P), COPD, dementia, osteoporosis - Past Surgical History Surgical History: non-contributory, other - Social History Smoking Status: Never smoker Smokeless Tobacco Status: No Alcohol use: none Drug use: none - Family History Mother Living Status: Medications and Allergies Sulfamethoxazole/Trimeth DS [Bactrim DS] 1 each PO BID #10 tablet 11/27/16 [Rx] Simvastatin [Zocor] 20 mg PO DAILY 11/30/16 [History] Allergies No Known Allergies Allergy (Verified 11/29/16 19:33) ROS unobtainable: due to mental status All Systems Review: A 10-system review of systems was performed and is negative for pertinent findings except as documented above in the HPI. - Cardiovascular Cardiovascular: as per HPI Physical Examination Vital Signs, Last 4 Hours Temp Pulse Resp BP Pulse Ox 11/30/16 07:56 63 11/30/16 07:22 97.7 F 68 16 118/67 95 General: Conversant, Other (alert to self only. ) Cardiac: Reg Rate and Rhythm, Normal S1 and S2, Other (systolic murmur 2/6) Lungs: Other (Few wheezes) Neuro: Alert and responsive (to self only. ) Abdomen: Soft Skin: No rashes noted on visualized skin Musculoskeletal: No Chest Wall Tenderness Extremities: No Edema, Normal Pulses Results 11/30/16 00:51 11/30/16 00:51 Lab Results 11/30/16 11/30/16 11/30/16 00:51 00:51 00:51 WBC 12.1 H Hgb 12.0 Hct 37.9 Plt Count 227 INR APTT Sodium Potassium Chloride Carbon Dioxide BUN Creatinine Glucose Calcium Magnesium 1.8 Troponin I 4.03 H* B-Natriuretic Peptide TSH 11/30/16 11/30/16 11/30/16 00:51 00:51 00:51 WBC Hgb Hct Plt Count INR 1.0 APTT 28.5 Sodium 140 Potassium 4.5 Chloride 110 H Carbon Dioxide 23 BUN 16 Creatinine 0.73 Glucose 125 H Calcium 8.5 L Magnesium Troponin I B-Natriuretic Peptide 1580 H TSH 11/30/16 11/30/16 03:47 03:47 WBC Hgb Hct Plt Count INR APTT Sodium Potassium Chloride Carbon Dioxide BUN Creatinine Glucose Calcium Magnesium Troponin I 3.85 H* B-Natriuretic Peptide TSH 0.144 L Active Medications Acetaminophen (Tylenol) 650 mg PO Q6HR PRN PRN Reason: Mild Pain (1-3) Stop: 06/01/17 00:22 Aspirin (Aspirin) 81 mg PO DAILY [facility] Stop: 06/01/17 09:01 Last Admin: 11/30/16 07:45 Dose: 81 mg Benzonatate (Tessalon) 200 mg PO TID PRN PRN Reason: Cough Stop: 06/01/17 00:22 Carvedilol (Coreg) 3.125 mg PO BIDWM [facility] Stop: 06/01/17 08:01 Last Admin: 11/30/16 07:44 Dose: 3.125 mg Digoxin (Lanoxin) 0.125 mg IVP Q6HR [facility] Stop: 11/30/16 12:01 Last Admin: 11/30/16 06:19 Dose: 0.125 mg Docusate Sodium (Colace) 100 mg PO BID PRN PRN Reason: Constipation Stop: 06/01/17 00:22 Guaifenesin (Mucinex) 600 mg PO BID [facility] Stop: 06/01/17 09:01 Last Admin: 11/30/16 07:45 Dose: 600 mg Heparin Sodium (Porcine) (Heparin) 3,700 unit 70 unit/kg (3700 unit) IVP Q6HR PRN PRN Reason: SEE COMMENTS Stop: 06/01/17 00:22 Heparin Sodium (Porcine) (Heparin) 1,800 unit 35 unit/kg (1800 unit) IVP Q6H PRN PRN Reason: SEE COMMENTS Stop: 06/01/17 00:22 Diltiazem HCl 125 mg/ Dextrose 125 mls @ 5 mls/hr IVC .Q24H [facility] PRN Reason: 5 MG/HR Stop: 05/31/17 20:01 Last Admin: 11/29/16 22:55 Dose: 5 mg/hr, 5 mls/hr Sodium Chloride (0.9 % Sodium Chloride) 1,000 mls @ 50 mls/hr IVC .Q20H [facility] Stop: 06/01/17 00:31 Last Admin: 11/30/16 01:51 Dose: 50 mls/hr Ceftriaxone Sodium 1,000 mg/ (Dextrose) 100 mls @ 200 mls/hr IVPB Q12HR [facility]YLLIS Stop: 06/01/17 06:01 Last Admin: 11/30/16 06:19 Dose: 200 mls/hr Heparin Sodium/Dextrose (Heparin 25,000 Unit/500 Ml D5w) 25,000 unit in 500 mls @ 14.606 mls/hr IVC .Q24H PHYLLIS; 14 UNIT/KG/HR PRN Reason: Protocol Stop: 06/01/17 00:31 Last Admin: 11/30/16 01:51 Dose: 14 unit/kg/hr, 14.606 mls/hr Levalbuterol HCl (Xopenex) 0.63 mg IH [id number] [facility] Stop: 06/01/17 10:31 Last Admin: 11/30/16 10:38 Dose: 0.63 mg Lisinopril (Zestril) 2.5 mg PO DAILY [facility] Stop: 06/01/17 09:01 Last Admin: 11/30/16 07:45 Dose: 2.5 mg Loratadine (Claritin) 10 mg PO DAILY [facility] PRN Reason: Protocol Stop: 06/01/17 09:01 Last Admin: 11/30/16 07:45 Dose: 10 mg Metoprolol Tartrate (Lopressor) 5 mg IVP Q6HR PRN PRN Reason: SEE COMMENTS Stop: 06/01/17 00:22 Morphine Sulfate (Morphine Sulfate) 2 mg IVP Q4HR PRN PRN Reason: Severe Pain (7-10) Stop: 06/01/17 00:22 Naloxone HCl (Narcan) 0.4 mg IVP Q2MIN PRN PRN Reason: Opioid Reversal Stop: 06/01/17 00:22 Nitroglycerin (Nitroglycerin) 0.4 mg SL Q5MIN PRN PRN Reason: Chest Pain Stop: 06/01/17 00:22 Omeprazole (Prilosec) 20 mg PO DAILY@0630 [facility] PRN Reason: Protocol Stop: 06/01/17 06:31 Last Admin: 11/30/16 06:19 Dose: 20 mg Ondansetron HCl (Zofran) 4 mg IVP Q8HR PRN PRN Reason: Nausea And Vomiting Stop: 06/01/17 00:22 Oxycodone HCl (Roxicodone) 5 mg PO Q6HR PRN PRN Reason: Moderate Pain (4-6) Stop: 06/01/17 00:22 Simvastatin (Zocor) 40 mg PO HS [facility] Stop: 06/01/17 21:01 - Imaging and Cardiology Echo: pending Other Results: 12 hour tele: avg HR=85. Now in SR. - EKG Interpretation EKG results cardiology: personally reviewed Consult Discharge Plan - Plan Referrals: Unassigned,Provider [Primary Care Provider] - <Naga Lott - Last Filed: 11/30/16 12:29> Date of Encounter: 11/30/16 Assessment and Plan Discussion w patient/family: The assessment and plan as outlined above was discussed with the patient and/or family members who expressed understanding and agreement. All questions were answered. Thank you for involving us in the care of your patient. Please call with any questions. History of Present Illness History of present illness: Ms. Mcdermott is a 86 year old female All Systems Review: A 10-system review of systems was performed and is negative for pertinent findings except as documented above in the HPI. Physical Examination Vital Signs, Last 4 Hours Pulse Resp BP Pulse Ox 11/30/16 11:00 86 11/30/16 10:41 94 26 187/92 97 11/30/16 10:39 32 86 L Results 11/30/16 00:51 11/30/16 00:51 Lab Results 11/30/16 11/30/16 11/30/16 00:51 00:51 00:51 WBC 12.1 H Hgb 12.0 Hct 37.9 Plt Count 227 INR APTT Sodium Potassium Chloride Carbon Dioxide BUN Creatinine Glucose Calcium Magnesium 1.8 Troponin I 4.03 H* B-Natriuretic Peptide TSH 11/30/16 11/30/16 11/30/16 00:51 00:51 00:51 WBC Hgb Hct Plt Count INR 1.0 APTT 28.5 Sodium 140 Potassium 4.5 Chloride 110 H Carbon Dioxide 23 BUN 16 Creatinine 0.73 Glucose 125 H Calcium 8.5 L Magnesium Troponin I B-Natriuretic Peptide 1580 H TSH 11/30/16 11/30/16 11/30/16 03:47 03:47 11:32 WBC Hgb Hct Plt Count INR APTT Sodium Potassium Chloride Carbon Dioxide BUN Creatinine Glucose Calcium Magnesium Troponin I 3.85 H* 3.42 H* B-Natriuretic Peptide TSH 0.144 L 11/30/16 11:32 WBC Hgb Hct Plt Count INR APTT 41.8 H Sodium Potassium Chloride Carbon Dioxide BUN Creatinine Glucose Calcium Magnesium Troponin I B-Natriuretic Peptide TSH - Attending Attestation I examined this patient and my medical decision-making was reviewed with the ENGINE MAINTENANCE MECHANIC/PA/Advanced Practice Nurse/Resident Physician. I agree with the documented findings, disposition and treatment plan as described except to the extent set forth below. Pt had a syncopal episode, history is limited, pt is very confused . Has a murmur of ? ischemia plan a/w with treating conservatively will check echo for a/w fluids Thanks !
[2016-11-30] MEDS ORDERED: Furosemide 20 MG/2 ML VIAL IVP STA (10:27)
[2016-11-30] MEDS ORDERED: Levalbuterol Neb 1.25 MG/3 ML IH SCH (10:30)
[2016-11-30] MEDS ORDERED: Furosemide 20 MG/2 ML VIAL IVP ONE (10:30)
[2016-11-30] MEDS ORDERED: Levalbuterol Neb 0.63 MG/3 ML ONE (10:33)
[2016-11-30] MEDS: Levalbuterol Neb 0.63 MG/3 ML IH SCH ×3 (10:38→22:35)
[2016-11-30 11:43] LABS: Bilirubin,Urine Negative (Negative); Blood,Urine Trace (Negative); Clarity,Urine Cloudy (Clear); Color,Urine Yellow (Yellow); Glucose,Urine (UA) Normal (Normal); Ketones,Urine Negative (Negative); Leukocyte Esterase,Urine Large (Negative); Nitrite,Urine Negative (Negative); Protein,Urine Negative (Neg-Trace); Specific Gravity,Urine 1.013 (1.010-1.025); Urobilinogen,Urine Normal (Normal)
[2016-11-30 11:46] LABS: Bacteria,Urine None Seen per hpf (None-Few); Hyaline Casts,Urine None Seen per lpf (None-Few); Squamous Epithelial Cell,Urine Few per lpf (None-Few); WBC,Urine TNTC per hpf (0-3)
[2016-11-30 11:48] LABS: Amphetamine Screen,Urine Negative ng/mL (Cutoff=1000); Barbiturate Screen,Urine Negative ng/mL (Cutoff=200); Benzodiazepines Screen,Urine Negative ng/mL (Cutoff=200); Cannabinoid Screen,Urine Negative ng/mL (Cutoff = 50); Cocaine Screen,Urine Negative ng/mL (Cutoff= 300); Opiate Screen,Urine Negative ng/mL (Cutoff=300); Phencyclidine Screen,Urine Negative ng/mL (Cutoff=25)
[2016-11-30] MEDS ORDERED: Magnesium Sulfate 1 GM in D5% in Water 100 ML IVPB ONE (12:44)
--- NOTE | 2016-11-30 13:04 | Internal Med Progress Note ---
Date of Encounter: 11/30/16 Time of Encounter: 09:00 - Assessment and plan (1) DVT prophylaxis Current Visit: Yes Status: Acute Assessment and plan: Patient is on heparin drip (2) Atrial fibrillation with RVR Current Visit: Yes Status: Acute Assessment and plan: Will continue Cardizem drip and heparin drip. Cardiology saw patient, recommendation will be followed. (3) Dementia Current Visit: Yes Status: Acute Assessment and plan: Continue supportive treatment. PTOT evaluation Qualifiers: Dementia type: vascular dementia Dementia behavioral disturbance: without behavioral disturbance Qualified Code(s): F01.50 - Vascular dementia without behavioral disturbance (4) NSTEMI (non-ST elevated myocardial infarction) Current Visit: Yes Status: Acute Assessment and plan: Elevated troponin. Patient has no chest pain. We will continue heparin drip. Cardiology consult. (5) Syncope and collapse Current Visit: Yes Status: Acute Assessment and plan: Etiology is undetermined. Will check echo and duplex carotid. Patient has A. fib, BP is stable. We will continue cardiac monitoring. - Subjective Interval history: Patient is a 86-year-old female admitted for syncope. Her past medical history is significant for dementia. Patient was found A Fib with RVR in ER and elevated troponin. She was treated with Cardizem drip and heparin drip. Patient was seen and examined. She is awake alert, not oriented to time and place. She has a one episode of shortness of breath today, improved after 20 mg Lasix IV. Her heart rate is getting down on Cardizem drip. Continue heparin drip for NSTEMI and A Fib. Cardiology consult appreciated. Patient has relatively low TSH but normal free T3 and T4. Her magnesium level is relatively low and the patient complained of muscle cramp, will give 1 g Mg. - Constitutional Vitals: Temp Pulse Resp BP Pulse Ox 97.7 F 86 26 187/92 97 11/30/16 07:22 11/30/16 11:00 11/30/16 10:41 11/30/16 10:41 11/30/16 10:41 General appearance: Present: cachectic, cooperative, A&O X 1, disheveled, no acute distress, underweight - Head Head exam: Present: atraumatic, normocephalic - Eye Eye exam: Present: PERRL, conjuntiva pink, sclera anicteric Pupils: Present: PERRL - Neck Neck exam general surgery: Present: supple, trachea midline. Absent: lymphadenopathy - Respiratory Respiratory exam: Present: CTAB. Absent: accessory muscle use, rales, rhonchi, wheezes - Cardiovascular Cardiovascular exam: Present: irregular rhythm, +S1, +S2. Absent: diastolic murmur, gallop, rubs, systolic murmur - GI/Abdominal GI/Abdominal exam: Present: normal bowel sounds, soft, no peritoneal signs. Absent: distended, tenderness - Extremities Exam Extremities exam: Present: warm, radial pulses palpable and symetrical. Absent : calf tenderness, cyanotic, pedal edema - Neurological Exam Neurological exam: Present: CN II-XII intact, oriented X3, no focal deficits. Absent: pronater drift, facial droop, speech deficit - Skin Skin exam: Present: dry, intact Internal Medicine: Result - Labs CBC & Chem 7: 11/30/16 00:51 11/30/16 00:51 Labs: Short CBC 11/30/16 Range/Units 00:51 WBC 12.1 H (4.3-11.1) K/mcL Hgb 12.0 (11.5-15.4) g/dL Hct 37.9 (35.3-44.9) % Plt Count 227 (140-400) K/mcL BMP 11/30/16 00:51 Sodium 140 Potassium 4.5 Chloride 110 H Carbon Dioxide 23 BUN 16 Creatinine 0.73 Glucose 125 H Calcium 8.5 L Cardiac Enzymes 11/30/16 11/30/16 11/30/16 Range/Units 00:51 03:47 11:32 Troponin I 4.03 H* 3.85 H* 3.42 H* (0-0.03) ng/mL Urine 11/30/16 Range/Units 11:15 Urine Color Yellow (Yellow) Urine Clarity Cloudy A (Clear) Urine pH 6.0 (5.0-8.0) pH Units Ur Specific [place] 1.013 (1.010-1.025) Urine Protein Negative (Neg-Trace) mg/dL Urine Glucose (UA) Normal (Normal) mg/dL - ABG Interpretation ABG results: PT/INR, D-dimer PT 11.2 Seconds (9.4-12.1) 11/30/16 00:51 Consult Discharge Plan - Plan Referrals: Unassigned,Provider [Primary Care Provider] -
--- NOTE | 2016-11-30 18:47 | ECHO - Doppler Report ---
Echocardiogram Name: Edwina Mcdermott Date of Study: 11/30/2016 Date: 1930 Ht: 62.0 in Medical Record#: [id number] Age: 86 Wt: 115.0 lb Gender: Female BSA: 1.51 Order #: [id number] Location: [facility] Room #: 2N11 Reading Physician: Tony Rojas DO, [facility] Director Life Sciences: Joan Kern Ordering Physician: Bacilio Melton MD Primary Physician: None Indications: ACS, AF w/RVR Impressions: LVEF 60-65%. Normal LV chamber size and function. Mild to moderate concentric left ventricular hypertrophy. Moderate left ventricular diastolic dysfunction. Normal right ventricular structure and function. Severely dilated left atrium. Moderately dilated right atrium. Severely calcified aortic valve leaflets. Critical aortic stenosis (Mean gradient 104 mmHg, Peak velocity 6.62 m/s). Mild aortic regurgitation. Mild mitral regurgitation. Mild tricuspid regurgitation. Mild-moderate pulmonary hypertension. Estimated RVSP is 46 mmHg. Mild pulmonic regurgitation. Aortic root was not well visualized. Grossly, it appears mildly dilated. Internal medicine and cardiology services notified. Left Ventricular Wall Motion: Rest Echo Findings All wall segments showed normal motion. Findings: Study Quality * Technically adequate exam. ECG Findings * Normal sinus rhythm. Left Ventricle * LVEF 60-65%. * Normal LV chamber size and function. * Mild to moderate concentric left ventricular hypertrophy. * Moderate left ventricular diastolic dysfunction. Right Ventricle * Normal right ventricular structure and function. Left Atrium * Severely dilated left atrium. Right Atrium * Moderately dilated right atrium. Interatrial Septum * Interatrial septum not well evaluated. Aortic Valve * Severely calcified aortic valve leaflets. * Critical aortic stenosis (Mean gradient 104 mmHg, Peak velocity 6.62 m/s). * Mild aortic regurgitation. Mitral Valve * Mild mitral annular calcification. * Moderately thickened mitral valve leaflets. * Mild mitral regurgitation. * No mitral stenosis. Tricuspid Valve * Normal tricuspid valve structure. * Mild tricuspid regurgitation. * Mild-moderate pulmonary hypertension. * Estimated RVSP is 46 mmHg. * Estimated RA pressure is 5 mmHg. Pulmonic Valve * Normal pulmonic valve structure. * Mild pulmonic regurgitation. Aorta * Aortic root was not well visualized. Grossly, it appears mildly dilated. Pericardium * The pericardium appears normal. IVC * Normal IVC dimensions and inspiratory collapse. Pulmonary Artery * Normal visualized portions of the main pulmonary artery. History Years 5 Packs 0.5 Congestive Heart Failure Measurements: BP: 187/ 92 2D Normal Values RVIDd: 2.80 cm <2.7 cm IVSd: 1.40 cm 0.6 - 1.0 cm LVIDd: 4.20 cm 3.7 - 5.6 cm LVPWd: 1.40 cm 0.6 - 1.1 cm LVIDs: 2.80 cm 1.5 - 3.6 cm AO: 3.90 cm < 4.0 cm LA: 4.90 cm 2.0 - 4.0cm %FS: 33.30 cm >25 % LVOT Diam: 1.70 cm LA volume: 85 Mitral Valve Peak E:1.18 m/sec Peak A:.85 m/sec E/A Ratio:1.4 Peak E' Lat Rene:9.26 cm/s Peak E' Med Rene:3.41 cm/s E/E' Lat Ratio:12.7 E/E' Med Ratio:34.6 LVOT Peak Rene:.81 m/sec Mean Rene:.57 m/sec Peak Grad:3.00 mmHg Mean Grad:1.00 mmHg Aortic Valve Peak Rene:6.62 m/sec Mean Rene:4.76 m/sec Peak Grad:175.00 mmHg Mean Grad:104.00 mmHg Valve Area:.25 cm2 Pressure 1/2 time:440.00 msec AI pressure Half-time: 440.00 msec Tricuspid Valve TV Regurg Peak Grad: 41.00mmHg TV Regurg Peak Rene: 3.20m/sec Updated by Tony Rojas DO, FACSugar, ANA MARIA DHALIWAL on 11/30/2016 6:40:08 PM electronically signed on 11/30/2016 6:44:24 PM with status of Final Wall Motion Nick: 1=Normal, 2=Hypokinesis, 3=Akinesis, 4=Dyskinesis, 5=Aneurysmal, 6=Hyperkinetic, X=Not Visualized (Blank)=Missing
[2016-12-01] MEDS: Levalbuterol Neb 0.63 MG/3 ML IH SCH ×4 (04:38→21:59)
[2016-12-01 05:44] LABS: Hemoglobin 11.4 g/dL (11.5-15.4); Mean Corpuscular HGB Conc 31.7 g/dL (31.6-35.5); Mean Corpuscular Volume 91.6 fL (83.0-100.0); Mean Platelet Volume 12.2 fL (9.4-12.4); Platelet Count 179 K/mcL (140-400); Red Blood Count 3.93 M/mcL (3.82-4.97)
[2016-12-01 05:47] LABS: INR 1.1; Prothrombin Time 11.9 Seconds (9.4-12.1)
[2016-12-01 05:50] LABS: Activated Partial Thrombo Time 57.8 Seconds (26.0-36.0)
[2016-12-01 05:59] LABS: BUN/Creatinine Ratio 17 (6-26); Blood Urea Nitrogen 16 mg/dL (7-20); Carbon Dioxide 26 mEq/L (19-29); Chloride 107 mEq/L (98-109); Glucose 104 mg/dL (70-99); Osmolality,Calculated 287 (280-300); Potassium 4.2 mEq/L (3.5-4.5); Sodium 138 mEq/L (136-145); eGFR For African Americans > 60 (> 60); eGFR For Non-African Americans 55 (> 60)
--- NOTE | 2016-12-01 06:46 | Electrocardiograph Report ---
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
--- NOTE | 2016-12-01 06:46 | Electrocardiograph Report ---
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
[2016-12-01] MEDS: Aspirin 81 MG TAB.CHEW PO SCH (07:21)
[2016-12-01] MEDS: Loratadine 10 MG TABLET PO SCH (07:22)
--- NOTE | 2016-12-01 08:31 | Internal Med Progress Note ---
Date of Encounter: 12/01/16 Time of Encounter: 08:29 - Assessment and plan (1) Atrial fibrillation with RVR Current Visit: Yes Status: Acute Assessment and plan: Patient with unknown hx of Afib Presented with NSTEMI and Afib with RVR Was on Cardizem driop, now on oral HR has been controlled Patient is on heparin drip for NSTEMI, troponin 3.82/4.03/3.85/3.42, will discontinue heparin drip if cardiology agrees ECHO noted for critical , LVEF 60-65%, moderate LVDD, severely dilated LA and moderately dilated RA Patient not on anticoagulation at home I do not think patient will be a good candidate for anticoagulation due to age, dementia and risk of falls As per intervention for Critical , will follow cardiology recs, patient is poor surgical candidate Low TSH with normal T3 and T4, thyroid USS noted for diffuse thyroid disease and bilateral nodules, for outpatient monitoring Bilateral doppler USS with non-stenotic plaques Syncope is cardiogenic in origin Patient also with UTI, follow cultures, continue antibiotics Patient is high risk due to heparin drip (2) Aortic stenosis Current Visit: Yes Status: Acute Assessment and plan: Critical per ECHO Patient also with Afb on RVR on admission, now rate controlled Qualifiers: Cardiac valve disease etiology: nonrheumatic Qualified Code(s): I35.0 - Nonrheumatic aortic (valve) stenosis (3) NSTEMI (non-ST elevated myocardial infarction) Current Visit: Yes Status: Acute (4) Syncope and collapse Current Visit: Yes Status: Acute (5) UTI (urinary tract infection) Current Visit: Yes Status: Acute Assessment and plan: Still with leukocytosis Follow urine cultures, continue IV antibiotics Qualifiers: Urinary tract infection type: acute cystitis Hematuria presence: without hematuria Qualified Code(s): N30.00 - Acute cystitis without hematuria (6) Dementia Current Visit: Yes Status: Acute Assessment and plan: Continue supportive treatment. PTOT evaluation Qualifiers: Dementia type: vascular dementia Dementia behavioral disturbance: without behavioral disturbance Qualified Code(s): F01.50 - Vascular dementia without behavioral disturbance (7) Hyperthyroidism Current Visit: Yes Status: Acute Assessment and plan: Suspected, thryoid USS Noted Patient with no prior knowledge of thyroid disease TSH is low, but T3 and T4 are WNL Bilateral thyroid nodules For follow up with endo and PCP as outpatient (8) COPD (chronic obstructive pulmonary disease) Current Visit: Yes Status: Chronic Qualifiers: COPD type: unspecified COPD Qualified Code(s): J44.9 - Chronic obstructive pulmonary disease, unspecified (9) DDD (degenerative disc disease), cervical Current Visit: Yes Status: Chronic (10) Diastolic CHF Current Visit: Yes Status: Acute Assessment and plan: Resolved with one dose of IV lasix NO current signs of congestion Qualifiers: Congestive heart failure chronicity: acute on chronic Qualified Code(s): I50.33 - Acute on chronic diastolic (congestive) heart failure (11) Counseling regarding advanced directives and goals of care Current Visit: Yes Status: Acute Assessment and plan: Consult palliative care Patient is confused and unable to fully participate in decision making regarding her health decisions She is full code at this time - Subjective Interval history: Initial encounter EMR reviewed 86 Y/O F , apparently resided alone at home, with admitting diagnosis of syncope Additional findings on admission include Afib with RVR, Critical aortic stenosis , suspected hyperthyroid state, NSTEMI Patient had been on cardizem drip, HR now controlled On heparin drip for NSTEMI Seen at bedside, no new complains She is still confused and oriented to person only - Constitutional Vitals: Temp Pulse Resp BP Pulse Ox 98.8 F 69 24 118/61 98 12/01/16 07:23 12/01/16 07:31 12/01/16 07:23 12/01/16 07:23 12/01/16 07:23 General appearance: Present: cachectic, cooperative, A&O X 1, disheveled, no acute distress, underweight - Head Head exam: Present: atraumatic - Eye Eye exam: Present: PERRL, conjuntiva pink, sclera anicteric - ENT ENT exam: Present: mucous membranes moist - Neck Neck exam general surgery: Present: normal inspection - Respiratory Respiratory exam: Present: CTAB. Absent: rales, respiratory distress, rhonchi - Cardiovascular Cardiovascular exam: Present: diastolic murmur, irregular rhythm, +S1, +S2, systolic murmur. Absent: gallop, JVD - GI/Abdominal GI/Abdominal exam: Present: normal bowel sounds, soft, no peritoneal signs. Absent: tenderness - Extremities Exam Extremities exam: Present: warm, radial pulses palpable and symetrical. Absent : calf tenderness, cyanotic, pedal edema - Neurological Exam Neurological exam: Present: CN II-XII intact, no focal deficits. Absent: pronater drift, facial droop, speech deficit Additional comments: Confused - Skin Skin exam: Present: dry, intact Internal Medicine: Result - Labs CBC & Chem 7: 12/01/16 05:21 12/01/16 05:21 Labs: Short CBC 12/01/16 Range/Units 05:21 WBC 12.6 H (4.3-11.1) K/mcL Hgb 11.4 L (11.5-15.4) g/dL Hct 36.0 (35.3-44.9) % Plt Count 179 (140-400) K/mcL BMP 12/01/16 05:21 Sodium 138 Potassium 4.2 Chloride 107 Carbon Dioxide 26 BUN 16 Creatinine 0.96 Glucose 104 H Calcium 8.0 L Cardiac Enzymes 11/30/16 Range/Units 11:32 Troponin I 3.42 H* (0-0.03) ng/mL Urine 11/30/16 Range/Units 11:15 Urine Color Yellow (Yellow) Urine Clarity Cloudy A (Clear) Urine pH 6.0 (5.0-8.0) pH Units Ur Specific [place] 1.013 (1.010-1.025) Urine Protein Negative (Neg-Trace) mg/dL Urine Glucose (UA) Normal (Normal) mg/dL - ABG Interpretation ABG results: PT/INR, D-dimer PT 11.9 Seconds (9.4-12.1) 12/01/16 05:21 - Impressions Impressions Thyroid Ultrasound 11/30/16 14:00 IMPRESSION: 1. Diffuse thyroid disease 2. Bilateral thyroid nodules. Recommend follow-up ultrasound in 1 year D/ / Angus Moise MD / Angus Moise MD Interpreting Provider: Angus Moise MD Consult Discharge Plan - Plan Referrals: Unassigned,Provider [Primary Care Provider] -
--- NOTE | 2016-12-01 12:51 | Cardiology Progress Note ---
<Minerva Amato Velma - Last Filed: 12/01/16 12:48> Date of Encounter: 12/01/16 Time of Encounter: 11:00 Assessment and Plan (1) NSTEMI (non-ST elevated myocardial infarction) Current Visit: Yes Status: Acute NSTEMI I vs. II--elevated troponin 3.85, 4.03, 3.82 in the setting of syncopal event and fall. It is unclear how long patient was down. ECG upon presentation shows afib with RVR. She is chest pain free. Okay to d/c IV heparin gtt. Continue asa, statin, and betablocker. TTE shows preserved LV function, with critical . No indication for cardiac rehab at this time. Long discussion with patient today; she is confused and unable to comprehend severity of illness. Pallative care consulted. Recommend continued medical management and consultation with family regarding wishes. (2) Atrial fibrillation with RVR Current Visit: Yes Status: Acute Unclear if patient has hx of Afib--listed in H&P. Does not appear that patient was on AC at home. Presented with Afib with RVR--now SR. Continue betablocker/cardizem for rate control now. CHA2Ds Vasc=2 (age, female); agree with primary service, she is a poor candidate for full AC due to confusion and frequent falls, continue asa for now. (3) Syncope and collapse Current Visit: Yes Status: Acute Likely secondary to critical . EF preserved per LVEF. Pallative care consulted. Recommend determining family wishes/code status. At this point, continue medical mgmt. Can discuss referral to [facility] for TAVR in the outpatient setting if family desires to proceed with AVR. Discussion w patient/family: The assessment and plan as outlined above was discussed with the patient and/or family members who expressed understanding and agreement. All questions were answered. Thank you for involving us in the care of your patient. Please call with any questions. The patient will be discussed and reviewed with Dr. Lott, changes to be made accordingly. Objective Vital Signs, Last 4 Hours Temp Pulse Resp BP Pulse Ox 12/01/16 11:02 99.4 F 63 24 119/61 98 12/01/16 11:00 62 12/01/16 10:53 16 98 12/01/16 10:25 69 Results 12/01/16 05:21 02/21/17 05:21 Lab Results 11/30/16 12/01/16 12/01/16 20:04 05:21 05:21 WBC 12.6 H Hgb 11.4 L Hct 36.0 Plt Count 179 INR 1.1 APTT 62.0 H 57.8 H Sodium Potassium Chloride Carbon Dioxide BUN Creatinine Glucose Calcium 12/01/16 05:21 WBC Hgb Hct Plt Count INR APTT Sodium 138 Potassium 4.2 Chloride 107 Carbon Dioxide 26 BUN 16 Creatinine 0.96 Glucose 104 H Calcium 8.0 L Consult Discharge Plan - Plan Referrals: Unassigned,Provider [Primary Care Provider] - <Naga Lott G - Last Filed: 12/01/16 13:13> Date of Encounter: 12/01/16 Assessment and Plan Discussion w patient/family: The assessment and plan as outlined above was discussed with the patient and/or family members who expressed understanding and agreement. All questions were answered. Thank you for involving us in the care of your patient. Please call with any questions. Objective Vital Signs, Last 4 Hours Temp Pulse Resp BP Pulse Ox 12/01/16 11:02 99.4 F 63 24 119/61 98 12/01/16 11:00 62 12/01/16 10:53 16 98 12/01/16 10:25 69 Results 12/01/16 05:21 12/01/16 05:21 Lab Results 11/30/16 12/01/16 12/01/16 20:04 05:21 05:21 WBC 12.6 H Hgb 11.4 L Hct 36.0 Plt Count 179 INR 1.1 APTT 62.0 H 57.8 H Sodium Potassium Chloride Carbon Dioxide BUN Creatinine Glucose Calcium 12/01/16 05:21 WBC Hgb Hct Plt Count INR APTT Sodium 138 Potassium 4.2 Chloride 107 Carbon Dioxide 26 BUN 16 Creatinine 0.96 Glucose 104 H Calcium 8.0 L Attestation Statement - Attestation Attestation: I examined this patient and my medical decision-making was reviewed with the RECTIFIER OPERATOR/PA/Advanced Practice Nurse/Resident Physician. I agree with the documented findings, disposition and treatment plan as described except to the extent set forth below. Pt has critical , may explain syncope appears confused , uable to follow what I am saying I tried several times to discuss the echo findings and possible therapy Pt was unable to engage VSS JVD: 6 cm Chest : clear CVS: late peaking ESM plan treat medically for now possible discuss in office re: TAVR or vavuloplasty
--- NOTE | 2016-12-01 13:00 | Carotid Imaging Report ---
Carotid Duplex Patient Name:Edwina Mcdermott Order Number:[id number] Procedure Date:11/30/2016 Date:1930Age:86 yrs Gender:Female Lt BP:187 / 92 mmHg Rt.BP:187 / 92 mmHgHeart Rate: Location:[facility] Room #: 2N11 Scroll Assembler:Joan Kern Referring MD:Bacilio Melton MD door worker:None Reading MD:Ashu Golden MD Primary Indications:Syncope Risk Factors Yes/No Smoker Previous Impressions: The bilateral carotid arteries have minimal plaque throughout. Findings Carotid Duplex: Right: There is nonstenotic plaque in the right mid common carotid artery. There is smooth heterogeneous plaque. There is nonstenotic plaque in the right distal common carotid artery. There is smooth heterogeneous plaque. There is nonstenotic plaque in the right bifurcation. There is calcified plaque. There is nonstenotic plaque in the right proximal internal carotid artery. There is calcified plaque. There is nonstenotic plaque in the right distal internal carotid artery. There is nonstenotic plaque in the right eca. There is smooth heterogeneous plaque. Left: There is nonstenotic plaque in the left distal common carotid artery. There is smooth heterogeneous plaque. There is nonstenotic plaque in the left bifurcation. There is calcified plaque. There is nonstenotic plaque in the left proximal internal carotid artery. There is calcified plaque. Prior Study: No prior study available for comparison. Carotid Results Right PSV EDV Assessment Proximal CCA 69 13 Normal Mid CCA 70 17 Non Stenotic Plaque Distal CCA 72 15 Non Stenotic Plaque Bifurcation 90 15 Non Stenotic Plaque Proximal ICA 60 19 Non Stenotic Plaque Mid ICA 89 31 Normal Distal ICA 104 36 Non Stenotic Plaque ECA 83 10 Non Stenotic Plaque Vertebral Artery 84 23 Antegrade Flow Left PSV EDV Assessment Proximal CCA 71 14 Normal Mid CCA 69 15 Normal Distal CCA 66 11 Non Stenotic Plaque Bifurcation 61 11 Non Stenotic Plaque Proximal ICA 75 21 Non Stenotic Plaque Mid ICA 93 27 Normal Distal ICA 63 17 Normal ECA 76 9 Normal Vertebral Artery 23 5 Antegrade Flow Ratio's Right ICA/CCA Ratio: 1.49 ICA/CCA Values: 104/70 Left ICA/CCA Ratio: 1.35 ICA/CCA Values: 93/69 Updated by Ashu Golden MD on 12/01/2016 12:54:14 PM electronically signed on 12/01/2016 12:54:24 PM with status of Final
--- NOTE | 2016-12-01 13:02 | Palliative - Consult Note ---
Date of Encounter: 12/01/16 Time of Encounter: 11:30 - Assessment and Plan (1) Counseling regarding advanced directives and goals of care Current Visit: Yes Status: Acute Assessment and plan: Discussed goals of care with the patient, but she was unable to follow the topics of conversation. She required frequent redirection to the conversation at hand and repeated stories. Contact her healthcare POA-Geraldine Romano [phone] {home} and {cell} regarding her mother's previously known wishes. Ms. Mcdermott was confident that her mother would not wand heroic measures in the event of a cardiac arrest (CPR, defib, ACLS protocol). She has had conversations in the past pertaining to this subject and it was not consistent with her mother's wishes. Ms. Romano states that her mother becomes easily "flustered" and especially anxious during tax season. According to Ms. Romano, her father was the primary decision maker when he was alive. Ms. Romano is agreeable to transition to rehab facility if her mother will consent. She requests a facility in [place], [place] as it will be near her son-Zay Mcdermott. Code status will be changed to DNR-CCA to best fit with the patient's previously known wishes. (2) Aortic stenosis Current Visit: Yes Status: Acute Assessment and plan: Cardiology following. Qualifiers: Cardiac valve disease etiology: nonrheumatic Qualified Code(s): I35.0 - Nonrheumatic aortic (valve) stenosis (3) NSTEMI (non-ST elevated myocardial infarction) Current Visit: Yes Status: Acute Assessment and plan: Cardiology following. (4) UTI (urinary tract infection) Current Visit: Yes Status: Acute Assessment and plan: Antibiotic therapy per hospitalist Qualifiers: Urinary tract infection type: acute cystitis Hematuria presence: without hematuria Qualified Code(s): N30.00 - Acute cystitis without hematuria Palliative-CN HPI - Data of Consult Patient: new to practice Consult date: 12/01/16 Requesting Physician: Warren Donahue MD Primary Care Provider: Provider Unassigned - Consult Narrative Palliative Care/Comfort Measures: Palliative care Reason for consult: Goals of care History of present illness: Ms. Mcdermott is a 86 year old female presenting to [facility] after a syncopal episode and fall while at the grocery store. She resides in her own home and is able to provide for her day-to-day needs, and continues to drive. She had a syncopal episode while waiting in line at the pharmacy, EMS services arrived and transported her to the emergency department for further workup and treatment. Ms. Mcdermott has no recollection of the episode and is quite astonished that she is in the hospital. Further workup for syncopal episode revealed an elevated troponin. Echocardiogram was completed which revealed critical aortic stenosis. Cardiology was consulted to assist with further management. The palliative care team was consulted to assist with goals of care. Ms. Mcdermott was admitted to cardiac unit for further monitoring. She was placed on anticoagulation for the NSTEMI. She was also treated for a urinary tract infection. Upon evaluation, the patient is unable to maintain fluid conversation. Her speech is intelligible, but she is unable to answer direct questions, and frequently requires redirection and conversation. She appears to focus mainly on an abrasion on her knee from a fall prior to admission. She does have advanced directives in place naming her daughter as her healthcare power of document review attorney. However, her daughter resides in [place] and must communicate via telephone. According to her daughter, the patient has had difficulty with conversation when under stress. Apparently, the patient's with the primary decision maker in most aspects of her life, and he in 2005. She maintains her primary care provider in [place], Dr. Wally Jimenez, as well as supportive consultants such as dentistry. CC: Warren Donahue MD Past Med Surg Social Fam HX - Past Medical History Source: patient, old records reviewed, obtained from family Medical history: arthritis, CHF, COPD, dementia, osteoporosis Psychiatric history: no psych history, other - Past Surgical History Surgical History: non-contributory, other - Social History Smoking Status: Never smoker Smokeless Tobacco Status: No Alcohol use: none Drug use: none - Family History Mother Living Status: Medications and Allergies Sulfamethoxazole/Trimeth DS [Bactrim DS] 1 each PO BID #10 tablet 11/27/16 [Rx] Simvastatin [Zocor] 20 mg PO DAILY 11/30/16 [History] Allergies No Known Allergies Allergy (Verified 11/29/16 19:33) - Constitutional Constitutional ROS PAL: frequent falls, no decreased appetite, no weight loss - EENT Eyes: requires corrective lenses, no change in vision Ears, nose, mouth, throat: no dysphagia, no sore throat - Cardiovascular Cardiovascular ROS: no chest pain, no chest pain with activity - Respiratory Respiratory: no cough, no dyspnea on exertion, no chest congestion - Gastrointestinal Gastrointestinal: no abdominal pain, no constipation, no diarrhea, no nausea, no vomiting - Genitourinary Palliative ROS female: no difficulty voiding, no urinary hesitancy - Musculoskeletal Musculoskeletal ROS IM: no back pain - Integumentary ROS Integumentary: no rash, no wounds - Neurological Neurological ROS: confusion, no focal weakness - Psychiatric Psychiatric general PM: anxiety, difficulty concentrating Palliative Care-Exam - Constitutional Vitals: Temp Pulse Resp BP Pulse Ox 99.4 F 63 24 119/61 98 12/01/16 11:02 12/01/16 11:02 12/01/16 11:02 12/01/16 11:02 12/01/16 11:02 General appearance: Present: cooperative Exam: 86-year-old female patient unable to participate and fluid conversation. Requires frequent redirection. - Head Head Exam: Present: atraumatic - Eye Eye exam: Present: EOMI Pupils: Present: PERRL - ENT ENT exam: Present: mucous membranes moist - Respiratory Respiratory exam: Present: CTAB. Absent: accessory muscle use, respiratory distress, wheezes, tachypnea - Cardiovascular Cardiovascular exam: Present: bradycardia, systolic murmur - GI/Abdominal Exam GI/Abdominal exam: Present: normal bowel sounds. Absent: tenderness - Catheter Type: Urethral (Sanchez) - Extremities Exam Extremities exam: Absent: pedal edema - Expanded Lower Extremities Exam Knee exam: Absent: normal inspection (Abrasion noted to right knee) - Neurological Exam Neurological exam: Present: alert (Oriented to person), no focal deficits - Psychiatric Psychiatric exam: Present: anxious - Skin Skin exam: Present: dry, warm Internal Medicine - CN: Reslt - Labs CBC & Chem 7: 12/01/16 05:21 12/01/16 05:21 Labs: Short CBC 12/01/16 Range/Units 05:21 WBC 12.6 H (4.3-11.1) K/mcL Hgb 11.4 L (11.5-15.4) g/dL Hct 36.0 (35.3-44.9) % Plt Count 179 (140-400) K/mcL BMP 12/01/16 05:21 Sodium 138 Potassium 4.2 Chloride 107 Carbon Dioxide 26 BUN 16 Creatinine 0.96 Glucose 104 H Calcium 8.0 L - ABG Interpretation ABG results: PT/INR, D-dimer PT 11.9 Seconds (9.4-12.1) 12/01/16 05:21 - Impressions Impressions Thyroid Ultrasound 11/30/16 14:00 IMPRESSION: 1. Diffuse thyroid disease 2. Bilateral thyroid nodules. Recommend follow-up ultrasound in 1 year D/ / Angus Moise MD / Angus Moise MD Interpreting Provider: Angus Moise MD Consult Discharge Plan - Plan Referrals: WALLY JIMENEZ [Other] Unassigned,Provider [Non-Partnered Physician] - Palliative Quality Palliative Quality: Screen for Code Status: Yes, Screen for Goals of Care: Yes, Screen for Pain: Yes, If Pain Regimen Started, Initiate Bowel Regimen: NA, Screen for Nausea/Vomitting: Yes
--- NOTE | 2016-12-01 17:46 | Electrocardiograph Report ---
[place] [id number] Test Date: 2016-11-30 Pat Name: Edwina Mcdermott Department: 110 Room: 2N03 Gender: F Salvage Cutter: : 1930 Requested By: Gumaro Mccoy Order Number: [id number] Reading MD: Lucero Irvin Measurements Intervals Solo Rate: 66 P: 54 NV: 176 QRS: 21 QRSD: 85 T: 26 QT: 386 QTc: 400 Interpretive Statements SINUS RHYTHM NONSPECIFIC ST \T\ T-WAVE ABNORMALITY Electronically Signed On 12-01-2016 17:45:13 EST by Lucero Irvin
[2016-12-02] MEDS: Levalbuterol Neb 0.63 MG/3 ML IH SCH ×4 (03:54→21:55)
[2016-12-02 04:53] LABS: Basophils # 0.1 K/mcL (0.0-0.2); Basophils % 0.6 %; Eosinophils # 0.3 K/mcL (0.0-0.6); Eosinophils % 3.8 %; Hemoglobin 11.5 g/dL (11.5-15.4); Immature Granulocytes % 0.2 % (0-4); Lymphocytes # 1.7 K/mcL (0.6-4.6); Lymphocytes % 20.3 %; Mean Corpuscular HGB Conc 30.3 g/dL (31.6-35.5); Mean Corpuscular Hemoglobin 27.8 pg (28.0-33.3); Mean Corpuscular Volume 91.8 fL (83.0-100.0); Mean Platelet Volume 12.2 fL (9.4-12.4); Monocytes % 12.1 %; Neutrophils # 5.2 K/mcL (1.6-8.9); Platelet Count 198 K/mcL (140-400); Red Blood Count 4.14 M/mcL (3.82-4.97); Red Cell Distribution Width 13.1 % (11.5-14.5)
[2016-12-02 04:56] LABS: INR 1.1; Prothrombin Time 11.9 Seconds (9.4-12.1)
[2016-12-02 05:03] LABS: Activated Partial Thrombo Time 27.2 Seconds (26.0-36.0)
[2016-12-02 05:06] LABS: BUN/Creatinine Ratio 21 (6-26); Blood Urea Nitrogen 16 mg/dL (7-20); Calcium 8.4 mg/dL (8.6-10.8); Carbon Dioxide 27 mEq/L (19-29); Chloride 108 mEq/L (98-109); Glucose 89 mg/dL (70-99); Osmolality,Calculated 293 (280-300); Potassium 4.4 mEq/L (3.5-4.5); Sodium 141 mEq/L (136-145); eGFR For African Americans > 60 (> 60); eGFR For Non-African Americans > 60 (> 60)
--- NOTE | 2016-12-02 08:14 | Cardiology Progress Note ---
Date of Encounter: 12/02/16 Time of Encounter: 08:00 Assessment and Plan (1) NSTEMI (non-ST elevated myocardial infarction) Current Visit: Yes Status: Acute NSTEMI I vs. II--elevated troponin 3.85, 4.03, 3.82 in the setting of syncopal event and fall. It is unclear how long patient was down. ECG upon presentation shows afib with RVR. She is chest pain free. Okay to d/c IV heparin gtt. Continue asa, statin, and betablocker. TTE shows preserved LV function, with critical . No indication for cardiac rehab at this time. Long discussion with patient today; she is confused and unable to comprehend severity of illness. Pallative care consulted, patient now DNRCC-A Recommend continued medical management and consultation with family regarding wishes. (2) Atrial fibrillation with RVR Current Visit: Yes Status: Acute Unclear if patient has hx of Afib--listed in H&P. Does not appear that patient was on AC at home. Presented with Afib with RVR--now SR. Continue betablocker for rate control now. CHA2Ds Vasc=2 (age, female); agree with primary service, she is a poor candidate for full AC due to confusion and frequent falls, continue asa for now. (3) Syncope and collapse Current Visit: Yes Status: Acute Likely secondary to critical , XP=757 mmHg. EF preserved per LVEF. Pallative care consulted, patient DNRCC-A. Again, patient remains confused and disoriented, per family wishes--only medical therapy. At this point, continue medical mgmt. Can discuss referral to [facility] for TAVR in the outpatient setting if family desires to proceed with AVR. Discussion w patient/family: The assessment and plan as outlined above was discussed with the patient and/or family members who expressed understanding and agreement. All questions were answered. Thank you for involving us in the care of your patient. Please call with any questions. The patient will be discussed and reviewed with Dr. Lott, changes to be made accordingly. Anticipate sign-off. Subjective Principal diagnosis: Critical Interval history: Seen and examined. Remains confused--alert to self at times. She does not answer questions appropriately. Objective Vital Signs, Last 4 Hours Temp Pulse Resp BP Pulse Ox 12/02/16 07:18 98.2 F 60 14 107/54 95 12/02/16 04:23 52 12/02/16 04:21 97.7 F 56 12 102/48 98 General: Conversant Cardiac: Reg Rate and Rhythm, Normal S1 and S2, Other (3/6 systolic murmur) Lungs: Normal Breath Sounds Neuro: Alert and responsive Abdomen: Soft Skin: No rashes noted on visualized skin Musculoskeletal: No Chest Wall Tenderness Extremities: No Edema, Normal Pulses Results 12/02/16 04:12 12/02/16 04:12 Lab Results 12/02/16 12/02/16 12/02/16 04:12 04:12 04:12 WBC 8.3 Hgb 11.5 Hct 38.0 Plt Count 198 INR 1.1 APTT 27.2 D Sodium 141 Potassium 4.4 Chloride 108 Carbon Dioxide 27 BUN 16 Creatinine 0.78 Glucose 89 Calcium 8.4 L Active Medications Acetaminophen (Tylenol) 650 mg PO Q6HR PRN PRN Reason: Mild Pain (1-3) Stop: 06/01/17 00:22 Last Admin: 12/01/16 19:30 Dose: 650 mg Aspirin (Aspirin) 81 mg PO DAILY REPLACED BY [facility] Stop: 06/01/17 09:01 Last Admin: 12/01/16 07:21 Dose: 81 mg Benzonatate (Tessalon) 200 mg PO TID PRN PRN Reason: Cough Stop: 06/01/17 00:22 Carvedilol (Coreg) 3.125 mg PO BIDWM REPLACED BY [facility] Stop: 06/01/17 08:01 Last Admin: 12/01/16 19:30 Dose: 3.125 mg Docusate Sodium (Colace) 100 mg PO BID PRN PRN Reason: Constipation Stop: 06/01/17 00:22 Guaifenesin (Mucinex) 600 mg PO BID REPLACED BY [facility] Stop: 06/01/17 09:01 Last Admin: 12/01/16 19:30 Dose: 600 mg Ceftriaxone Sodium 1,000 mg/ (Dextrose) 100 mls @ 200 mls/hr IVPB Q12HR REPLACED BY [facility] Stop: 06/01/17 06:01 Last Admin: 12/02/16 06:05 Dose: 200 mls/hr Levalbuterol HCl (Xopenex) 0.63 mg IH [id number] REPLACED BY [facility] Stop: 06/01/17 10:31 Last Admin: 12/02/16 03:54 Dose: Not Given Lisinopril (Zestril) 2.5 mg PO DAILY REPLACED BY [facility] Stop: 06/01/17 09:01 Last Admin: 12/01/16 07:22 Dose: 2.5 mg Loratadine (Claritin) 10 mg PO DAILY REPLACED BY [facility] PRN Reason: Protocol Stop: 06/01/17 09:01 Last Admin: 12/01/16 07:22 Dose: 10 mg Morphine Sulfate (Morphine Sulfate) 2 mg IVP Q4HR PRN PRN Reason: Severe Pain (7-10) Stop: 06/01/17 00:22 Naloxone HCl (Narcan) 0.4 mg IVP Q2MIN PRN PRN Reason: Opioid Reversal Stop: 06/01/17 00:22 Nitroglycerin (Nitroglycerin) 0.4 mg SL Q5MIN PRN PRN Reason: Chest Pain Stop: 06/01/17 00:22 Omeprazole (Prilosec) 20 mg PO DAILY@0630 REPLACED BY [facility] PRN Reason: Protocol Stop: 06/01/17 06:31 Last Admin: 12/01/16 06:03 Dose: 20 mg Ondansetron HCl (Zofran) 4 mg IVP Q8HR PRN PRN Reason: Nausea And Vomiting Stop: 06/01/17 00:22 Oxycodone HCl (Roxicodone) 5 mg PO Q6HR PRN PRN Reason: Moderate Pain (4-6) Stop: 06/01/17 00:22 Simvastatin (Zocor) 40 mg PO HS REPLACED BY [facility] Stop: 06/01/17 21:01 Last Admin: 12/01/16 19:30 Dose: 40 mg - Imaging and Cardiology Echo: report reviewed Other Results: 12 hour tele: avg HR=55 SB. No significant pause. - EKG Interpretation EKG results cardiology: personally reviewed Consult Discharge Plan - Plan Referrals: KALPESH JIMENEZ [Other] Unassigned,Provider [Non-Partnered Physician] -
[2016-12-02] MEDS: Loratadine 10 MG TABLET PO SCH (08:24)
[2016-12-02] MEDS: Aspirin 81 MG TAB.CHEW PO SCH (08:24)
--- NOTE | 2016-12-02 12:27 | Internal Med Progress Note ---
Date of Encounter: 12/02/16 Time of Encounter: 11:20 - Assessment and plan (1) Atrial fibrillation with RVR Current Visit: Yes Status: Acute Assessment and plan: Patient with unknown hx of Afib Presented with NSTEMI and Afib with RVR HR has been controlled on coreg, continue same NSTEMI, troponin 3.82/4.03/3.85/3.42, ACS protocol with heparin drip d/jacques 12/01 ECHO noted for critical , LVEF 60-65%, moderate LVDD, severely dilated LA and moderately dilated RA Continue ASA, BB and ACEI Not a good candidate for AC due to risk of falls As per intervention for Critical , family wants medical management for now Cardiology has signed off and recommends TAVR at [facility] as out-patient if family so desires Low TSH with normal T3 and T4, thyroid USS noted for diffuse thyroid disease and bilateral nodules, for outpatient monitoring Bilateral doppler USS with non-stenotic plaques 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, already being treated Patient also with UTI, follow cultures, continue antibiotics This patient lacks decisional capacity, and has multiple cardiac problems, posisbly responsible for her syncope and recurrent falls, she is also confused and is not a safe discharge home to be by herself, she will require supervision 03/05 upon discharge Family may sign certificate of responsibility if they decide to take her home with them Continue current management until d/c disposition is determined (2) Aortic stenosis Current Visit: Yes Status: Acute Assessment and plan: As above Qualifiers: Cardiac valve disease etiology: nonrheumatic Qualified Code(s): I35.0 - Nonrheumatic aortic (valve) stenosis (3) NSTEMI (non-ST elevated myocardial infarction) Current Visit: Yes Status: Acute Assessment and plan: As above. (4) Syncope and collapse Current Visit: Yes Status: Acute Assessment and plan: As above (5) UTI (urinary tract infection) Current Visit: Yes Status: Acute Assessment and plan: Leukocytosis improved Follow urine cultures, continue IV antibiotics Qualifiers: Urinary tract infection type: acute cystitis Hematuria presence: without hematuria Qualified Code(s): N30.00 - Acute cystitis without hematuria (6) Dementia Current Visit: Yes Status: Acute Assessment and plan: Continue supportive treatment Fall precautions Qualifiers: Dementia type: vascular dementia Dementia behavioral disturbance: without behavioral disturbance Qualified Code(s): F01.50 - Vascular dementia without behavioral disturbance (7) Hyperthyroidism Current Visit: Yes Status: Acute Assessment and plan: Suspected, thryoid USS Noted Patient with no prior knowledge of thyroid disease TSH is low, but T3 and T4 are WNL Bilateral thyroid nodules For follow up with endo and PCP as outpatient (8) COPD (chronic obstructive pulmonary disease) Current Visit: Yes Status: Chronic Qualifiers: COPD type: unspecified COPD Qualified Code(s): J44.9 - Chronic obstructive pulmonary disease, unspecified (9) DDD (degenerative disc disease), cervical Current Visit: Yes Status: Chronic (10) Diastolic CHF Current Visit: Yes Status: Acute Assessment and plan: Resolved with one dose of IV lasix NO current signs of congestion Qualifiers: Congestive heart failure chronicity: acute on chronic Qualified Code(s): I50.33 - Acute on chronic diastolic (congestive) heart failure (11) Counseling regarding advanced directives and goals of care Current Visit: Yes Status: Acute Assessment and plan: Palliative care review appreciated - Subjective Interval history: 86 Y/O F , apparently resided alone at home, with admitting diagnosis of syncope Additional findings on admission include Afib with RVR, Critical aortic stenosis , suspected hyperthyroid state, NSTEMI Patient had been on cardizem drip, HR now controlled On heparin drip for NSTEMI, discontinued 12/01 Seen at bedside, no new complains She is still confused and oriented to person only Palliative care review appreciated, patient is DNR-CCA now She mentions her son and his are considering she moves in with them upon discharge, SW is working on d/c disposition as well She is otherwise stable - Constitutional Vitals: Temp Pulse Resp BP Pulse Ox 98.3 F 59 14 102/62 98 12/02/16 11:32 12/02/16 11:32 12/02/16 11:32 12/02/16 11:32 12/02/16 11:32 General appearance: Present: cachectic, cooperative, A&O X 1, disheveled, no acute distress, underweight - Head Head exam: Present: atraumatic, normocephalic - Eye Eye exam: Present: PERRL, conjuntiva pink, sclera anicteric Pupils: Present: PERRL - Neck Neck exam general surgery: Present: supple, trachea midline. Absent: lymphadenopathy - Respiratory Respiratory exam: Present: CTAB. Absent: accessory muscle use, rales, rhonchi, wheezes - Cardiovascular Cardiovascular exam: Present: diastolic murmur, irregular rhythm, +S1, +S2, systolic murmur - GI/Abdominal GI/Abdominal exam: Present: normal bowel sounds, soft, no peritoneal signs. Absent: distended, tenderness - Extremities Exam Extremities exam: Present: warm, radial pulses palpable and symetrical. Absent : calf tenderness, cyanotic, pedal edema - Neurological Exam Neurological exam: Present: CN II-XII intact, oriented X3, no focal deficits. Absent: pronater drift, facial droop, speech deficit - Skin Skin exam: Present: dry, intact Internal Medicine: Result - Labs CBC & Chem 7: 12/02/16 04:12 12/02/16 04:12 Labs: Short CBC 12/02/16 Range/Units 04:12 WBC 8.3 (4.3-11.1) K/mcL Hgb 11.5 (11.5-15.4) g/dL Hct 38.0 (35.3-44.9) % Plt Count 198 (140-400) K/mcL Neutrophils # 5.2 (1.6-8.9) K/mcL BMP 12/02/16 04:12 Sodium 141 Potassium 4.4 Chloride 108 Carbon Dioxide 27 BUN 16 Creatinine 0.78 Glucose 89 Calcium 8.4 L - ABG Interpretation ABG results: PT/INR, D-dimer PT 11.9 Seconds (9.4-12.1) 12/02/16 04:12 Consult Discharge Plan - Plan Referrals: KALPESH JIMENEZ [Other] Unassigned,Provider [Non-Partnered Physician] - Minerva Amato CNP [Partnered Physician] - 12/23/16 4:00 pm
--- NOTE | 2016-12-02 14:32 | Event Note ---
Date of Encounter: 12/02/16 Time of Encounter: 11:00 Ms. Mcdermott was sitting up in bed. She is alert to person only. Speech is clear. She is unable to follow conversation and cannot answer questions such as "where do you go to taoist", "tell me what your friend's name is", "where do you grocery shop", and "what color is your car". She became more agitated throughout the conversation. account services specialist is following for placement/ discharge planning. Goals of care discussion with daughter-Tahira Romano- yesterday. Code status changed to DNR-Arrest. The palliative care team will follow from a distance. Discussed with the hospitalist team.
[2016-12-03] MEDS: Levalbuterol Neb 0.63 MG/3 ML IH SCH ×4 (05:11→22:04)
--- NOTE | 2016-12-03 08:30 | Internal Med Progress Note ---
Date of Encounter: 12/03/16 Time of Encounter: 08:30 - Assessment and plan (1) Atrial fibrillation with RVR Current Visit: Yes Status: Acute Assessment and plan: Newly diagnosed A-fin Presented with NSTEMI and Afib with RVR HR has been controlled on coreg, continue same NSTEMI, troponin 3.82/4.03/3.85/3.42, ACS protocol with heparin drip d/jacques 12/01 ECHO noted for critical , LVEF 60-65%, moderate LVDD, severely dilated LA and moderately dilated RA Continue ASA, BB and ACEI Not a good candidate for AC due to risk of falls As per intervention for Critical , family wants medical management for now Cardiology has signed off and recommends TAVR at [facility] as out-patient if family so desires Low TSH with normal T3 and T4, thyroid USS noted for diffuse thyroid disease and bilateral nodules, for outpatient monitoring Bilateral doppler USS with non-stenotic plaques 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, already being treated Patient also with UTI, d/c IV antibiotics, change to oral, leukocytosis has resolved This patient lacks decisional capacity, and has multiple cardiac problems, posisbly responsible for her syncope and recurrent falls, she is also confused and is not a safe discharge home to be by herself, she will require supervision 03/05 upon discharge Family may sign certificate of responsibility if they decide to take her home with them Continue current management until d/c disposition is determined (2) Aortic stenosis Current Visit: Yes Status: Acute Assessment and plan: As above Qualifiers: Cardiac valve disease etiology: nonrheumatic Qualified Code(s): I35.0 - Nonrheumatic aortic (valve) stenosis (3) NSTEMI (non-ST elevated myocardial infarction) Current Visit: Yes Status: Acute Assessment and plan: As above. (4) Syncope and collapse Current Visit: Yes Status: Acute Assessment and plan: As above (5) UTI (urinary tract infection) Current Visit: Yes Status: Acute Assessment and plan: Leukocytosis improved Follow urine cultures Change antibiotics to oral Qualifiers: Urinary tract infection type: acute cystitis Hematuria presence: without hematuria Qualified Code(s): N30.00 - Acute cystitis without hematuria (6) Dementia Current Visit: Yes Status: Acute Assessment and plan: Continue supportive treatment Fall precautions Qualifiers: Dementia type: vascular dementia Dementia behavioral disturbance: without behavioral disturbance Qualified Code(s): F01.50 - Vascular dementia without behavioral disturbance (7) Hyperthyroidism Current Visit: Yes Status: Acute Assessment and plan: Suspected, thryoid USS Noted for nodules Patient with no prior knowledge of thyroid disease TSH is low, but T3 and T4 are WNL Bilateral thyroid nodules For follow up with endo and PCP as outpatient (8) COPD (chronic obstructive pulmonary disease) Current Visit: Yes Status: Chronic Qualifiers: COPD type: unspecified COPD Qualified Code(s): J44.9 - Chronic obstructive pulmonary disease, unspecified (9) DDD (degenerative disc disease), cervical Current Visit: Yes Status: Chronic (10) Diastolic CHF Current Visit: Yes Status: Acute Assessment and plan: No signs of congestion Qualifiers: Congestive heart failure chronicity: acute on chronic Qualified Code(s): I50.33 - Acute on chronic diastolic (congestive) heart failure (11) Counseling regarding advanced directives and goals of care Current Visit: Yes Status: Acute Assessment and plan: Palliative care review appreciated - Subjective Interval history: 86 Y/O F , apparently resided alone at home, with admitting diagnosis of syncope Additional findings on admission include Afib with RVR, Critical aortic stenosis , suspected hyperthyroid state, NSTEMI Patient had been on cardizem drip, HR now controlled On heparin drip for NSTEMI, discontinued 12/01 Seen at bedside, no new complains She is still confused and oriented to person only Palliative care review appreciated, patient is DNR-CCA now Per , her daughter is planning to come to [place] Monday 12/04 to either take patient home and or making attempts for assisted living Patient is clinically stable to be transferred out of - Constitutional Vitals: Temp Pulse Resp BP Pulse Ox 98.0 F 56 18 109/70 96 12/03/16 07:23 12/03/16 07:23 12/03/16 07:23 12/03/16 07:23 12/03/16 07:23 General appearance: Present: cachectic, cooperative, A&O X 1, no acute distress , underweight - Head Head exam: Present: atraumatic, normocephalic - Eye Eye exam: Present: PERRL, conjuntiva pink, sclera anicteric Pupils: Present: PERRL - Neck Neck exam general surgery: Present: supple, trachea midline. Absent: lymphadenopathy - Respiratory Respiratory exam: Present: CTAB. Absent: rales, rhonchi, wheezes, tachypnea - Cardiovascular Cardiovascular exam: Present: diastolic murmur, irregular rhythm, +S1, +S2, systolic murmur. Absent: JVD - GI/Abdominal GI/Abdominal exam: Present: normal bowel sounds, soft, no peritoneal signs. Absent: mass, tenderness - Extremities Exam Extremities exam: Present: warm, radial pulses palpable and symetrical. Absent : calf tenderness, cyanotic, pedal edema - Neurological Exam Neurological exam: Present: alert, no focal deficits, strengths equal and symetr throughout. Absent: oriented X3, pronater drift, facial droop, speech deficit - Skin Skin exam: Present: dry, intact Internal Medicine: Result - Labs CBC & Chem 7: 12/02/16 04:12 12/02/16 04:12 - ABG Interpretation ABG results: PT/INR, D-dimer PT 11.9 Seconds (9.4-12.1) 12/02/16 04:12 Consult Discharge Plan - Plan Referrals: KALPESH JIMENEZ [Other] Minerva Amato, BETTE [Partnered Physician] - 12/23/16 4:00 pm
[2016-12-03] MEDS: Loratadine 10 MG TABLET PO SCH (09:31)
[2016-12-03] MEDS: Cefdinir 300 MG CAPSULE PO SCH ×2 (09:31→20:15)
[2016-12-03] MEDS: Aspirin 81 MG TAB.CHEW PO SCH (09:31)
[2016-12-03] MEDS: Heparin 25,000 UNIT/500 ML D5W 25,000 UNIT/500 ML MLS IVC SCH (21:34)
[2016-12-04] MEDS: Levalbuterol Neb 0.63 MG/3 ML IH SCH ×4 (03:49→22:33)
[2016-12-04] MEDS: Aspirin 81 MG TAB.CHEW PO SCH (08:28)
[2016-12-04] MEDS: Loratadine 10 MG TABLET PO SCH (08:29)
[2016-12-04] MEDS: Cefdinir 300 MG CAPSULE PO SCH ×2 (08:43→21:56)
--- NOTE | 2016-12-04 13:23 | Event Note ---
Date of Encounter: 12/04/16 Time of Encounter: 13:22 [employer] following for discharge needs. The palliative care team will sign off. Please re-consult if needed.
--- NOTE | 2016-12-04 15:05 | Internal Med Progress Note ---
<MichealRody Myriam Rosi - Last Filed: 12/04/16 16:39> Date of Encounter: 12/04/16 Time of Encounter: 10:30 - Assessment and plan (1) Aortic stenosis Current Visit: Yes Status: Acute Assessment and plan: Echo with critical , MG 104mmHg, Peak velocity 6.62m/s, LVEF 60-65%, moderate LVDD, severly dilated LA and moderately dilated RA. Critical likely predisposing factor for patient's episode of syncope. Per cardiology, family only wants medical management at this time. Cardiology has signed off and recommends TAVR at [facility] as an out-patient if family desires. Plan: Continue ASA Continue statin Qualifiers: Cardiac valve disease etiology: nonrheumatic Qualified Code(s): I35.0 - Nonrheumatic aortic (valve) stenosis (2) NSTEMI (non-ST elevated myocardial infarction) Current Visit: Yes Status: Acute Assessment and plan: Patient presented to hospital with NSTEMI and Afib RVR. Troponins 3.85, 4.03, 3.82. Patient received heparin ggt which was discontinued 12/01/16. Plan: ASA, BB, ACEI (3) Atrial fibrillation with RVR Current Visit: Yes Status: Acute Assessment and plan: Patient presented with newly diagnosed A-fib. CHADs VASC =2. Patient is not a good candidate for AC due to risk of falls and dementia. Plan: Continue rate control with BB ASA (4) UTI (urinary tract infection) Current Visit: Yes Status: Acute Assessment and plan: Leukocytosis improved Follow urine cultures Change antibiotics to oral Qualifiers: Urinary tract infection type: acute cystitis Hematuria presence: without hematuria Qualified Code(s): N30.00 - Acute cystitis without hematuria (5) Acute maxillary sinusitis, unspecified Current Visit: Yes Status: Acute Assessment and plan: Omnicef given for UTI will cover sinusitis Continue omnicef Qualifiers: Recurrence: not specified as recurrent Qualified Code(s): J01.00 - Acute maxillary sinusitis, unspecified (6) Dementia Current Visit: Yes Status: Acute Assessment and plan: Patient lacks decisional capacity, and has multiple cardiac problems. Cardiac problems may be responsible for her syncope and recurrent falls, she is also confused and is not a safe discharge home to be by herself, she will require supervision 03/05 upon discharge. Family may sign certificate of responsibility if they decide to take her home with them. Continue current management until d/ c disposition is determined. Spoke to BOB Robison about patient's discharge preparations. He informed me that daughter, Tahira, is flying in from [place] and will be at the hospital this evening. Patient's daughter will assume care for patient and is planning to find ECF for patient in the [place] area, near patient's son. Plan: Discharge tomorrow under care of daughterTahira Continue supportive treatment Fall precautions Qualifiers: Dementia type: vascular dementia Dementia behavioral disturbance: without behavioral disturbance Qualified Code(s): F01.50 - Vascular dementia without behavioral disturbance (7) Closed head injury Current Visit: Yes Status: Acute Assessment and plan: CT head positive for mild left temporal scalp subcutaneous soft tissue swelling , mild perenchymal volume loss, moderate chronic microvascular disease, and right maxillary sinusitis. CT negative for acute intracranial abnormality. Qualifiers: Encounter type: initial encounter Qualified Code(s): S09.90XA - Unspecified injury of head, initial encounter (8) DVT prophylaxis Current Visit: Yes Status: Acute Assessment and plan: Heparin SQ - Time Spent With Patient 25 - 35 minutes (30 minutes including time with patient and time coordinatin care) - Subjective Interval history: Patient found sitting up in bed just having finished breakfast at time of interview. She recounts going to the grocery and having an episode of syncope that occurred suddenly and without warning. She has difficulty making conversation due to frustration with word-finding and thought-blocking. - Constitutional Vitals: Temp Pulse Resp BP Pulse Ox 98.6 F 65 14 93/53 96 12/04/16 11:11 12/04/16 11:11 12/04/16 11:11 12/04/16 11:11 12/04/16 11:11 General appearance: Present: cachectic, cooperative, A&O X 1 (not oriented to place or time. However, she does know that she has 2 children which are male and female. She states that her 's name was Jose and that she traveled with her for work. She does not answer question when asked what Jose does.), disheveled, no acute distress, underweight - Head Head exam: Present: normocephalic Additional comments: Area of tissue swelling and TTP to left temporal region. - Eye Eye exam: Present: EOMI, PERRL, conjuntiva pink, sclera anicteric Additional comments: pupils are 2mm in size and equally reactive to light - Neck Neck exam general surgery: Present: supple, trachea midline. Absent: lymphadenopathy Additional comments: no carotid bruits - Respiratory Respiratory exam: Present: CTAB. Absent: accessory muscle use, rales, rhonchi, wheezes - Cardiovascular Cardiovascular exam: Present: irregular rhythm, RRR, systolic murmur (6/6 blowing systolic murmur, pulsus parvus et tardis ). Absent: diastolic murmur, gallop, rubs - GI/Abdominal GI/Abdominal exam: Present: normal bowel sounds, soft, no peritoneal signs. Absent: distended, tenderness - Extremities Exam Extremities exam: Present: warm, radial pulses palpable and symetrical. Absent : cyanotic, pedal edema - Neurological Exam Neurological exam: Present: CN II-XII intact, oriented X3, no focal deficits. Absent: pronater drift, facial droop, speech deficit - Psychiatric Psychiatric exam: Present: anxious (thought-blocking, confabulation) - Skin Skin exam: Present: dry, intact Internal Medicine: Result - Labs CBC & Chem 7: 12/02/16 04:12 12/02/16 04:12 - ABG Interpretation ABG results: PT/INR, D-dimer PT 11.9 Seconds (9.4-12.1) 12/02/16 04:12 - Impressions Chest X-Ray 11/29/16 19:38 IMPRESSION: 1. No acute cardiopulmonary process. 2. Cardiomegaly. 3. Chronic lung changes likely reflecting COPD. 4. Osteopenia. D/ / Evans Palacio MD / Evans Palacio MD Interpreting Provider: Evans Palacio MD Head CT 11/29/16 19:39 IMPRESSION: Mild left temporal scalp subcutaneous soft tissue swelling. No acute intracranial abnormality. Mild parenchymal volume loss. Moderate chronic microvascular disease. Right maxillary sinusitis. D/ / Tyson Carolina MD / Tyson Carolina MD Interpreting Provider: Tyson Carolina MD Cervical Spine CT 11/29/16 19:40 IMPRESSION: No acute abnormality of the cervical spine. Mild height loss of the T1 vertebral body, although age-indeterminate, likely chronic. Mild chronic height loss of C5, C6 and C7 vertebral bodies. D/ / Tyson Carolina MD / Tyson Carolina MD Interpreting Provider: Tyson Carolina MD Thyroid Ultrasound 11/30/16 14:00 IMPRESSION: 1. Diffuse thyroid disease 2. Bilateral thyroid nodules. Recommend follow-up ultrasound in 1 year D/ / Angus Moise MD / Angus Moise MD Interpreting Provider: Angus Moise MD Consult Discharge Plan - Plan Referrals: KALPESH JIMENEZ [Other] Minerva Amato, ROLL TUBE SETTER [Partnered Physician] - 12/23/16 4:00 pm - Attending Attestation I examined this patient and my medical decision-making was reviewed with the TELEPHONE CLERKS SUPERVISOR/PA/Advanced Practice Nurse/Resident Physician. I agree with the documented findings, disposition and treatment plan as described except to the extent set forth below. <Kahlil Lacy - Last Filed: 12/05/16 07:17> Date of Encounter: 12/05/16 - Constitutional Vitals: Temp Pulse Resp BP Pulse Ox 98.2 F 54 16 111/57 95 12/05/16 04:26 12/05/16 04:26 12/05/16 04:26 12/05/16 04:26 12/05/16 04:26 Internal Medicine: Result - Labs CBC & Chem 7: 12/05/16 04:49 12/05/16 04:49 Labs: Short CBC 12/05/16 Range/Units 04:49 WBC 8.2 (4.3-11.1) K/mcL Hgb 12.4 (11.5-15.4) g/dL Hct 38.9 (35.3-44.9) % Plt Count 229 (140-400) K/mcL Neutrophils # 4.4 (1.6-8.9) K/mcL BMP 12/05/16 04:49 Sodium 141 Potassium 4.1 Chloride 107 Carbon Dioxide 26 BUN 16 Creatinine 0.68 Glucose 103 H Calcium 8.9 - ABG Interpretation ABG results: PT/INR, D-dimer PT 11.9 Seconds (9.4-12.1) 12/02/16 04:12 - Attending Attestation I examined this patient and my medical decision-making was reviewed with the TELEPHONE CLERKS SUPERVISOR/PA/Advanced Practice Nurse/Resident Physician. I agree with the documented findings, disposition and treatment plan as described except to the extent set forth below. Agree with Dr. Burton, , UTI, Afib, stable, for discharge under her daughter's supervision. Follow with social media assistant.
--- NOTE | 2016-12-04 17:15 | Electrocardiograph Report ---
[place] [id number] Test Date: 2016-12-04 Pat Name: Edwina Mcdermott Department: 115 Room: 3A Gender: F Hand Sample Maker: : [id number] Requested By: Kahlil Lacy Order Number: [id number] Reading MD: Vicki Archer Measurements Intervals [place] Rate: 64 P: 33 ND: 184 QRS: 22 QRSD: 87 T: 5 QT: 408 QTc: 418 Interpretive Statements SINUS RHYTHM LEFT VENTRICULAR HYPERTROPHY AND ST-T CHANGE Electronically Signed On 12-04-2016 17:13:30 EST by Vicki Archer
[2016-12-04] MEDS: *HR* Heparin 5,000 UNIT/ML VIAL SQ SCH (19:45)
[2016-12-05] MEDS: Levalbuterol Neb 0.63 MG/3 ML IH SCH ×4 (04:14→22:45)
[2016-12-05 05:20] LABS: Basophils # 0.1 K/mcL (0.0-0.2); Basophils % 0.6 %; Eosinophils # 0.4 K/mcL (0.0-0.6); Eosinophils % 5.4 %; Hematocrit 38.9 % (35.3-44.9); Hemoglobin 12.4 g/dL (11.5-15.4); Immature Granulocytes % 0.2 % (0-4); Lymphocytes # 2.5 K/mcL (0.6-4.6); Lymphocytes % 30.1 %; Mean Corpuscular HGB Conc 31.9 g/dL (31.6-35.5); Mean Corpuscular Hemoglobin 28.6 pg (28.0-33.3); Mean Corpuscular Volume 89.8 fL (83.0-100.0); Mean Platelet Volume 12.3 fL (9.4-12.4); Monocytes # 0.8 K/mcL (0.0-1.3); Monocytes % 9.8 %; Neutrophils # 4.4 K/mcL (1.6-8.9); Platelet Count 229 K/mcL (140-400); Red Blood Count 4.33 M/mcL (3.82-4.97); Segmented Neutrophils % 53.9 %
[2016-12-05 05:29] LABS: BUN/Creatinine Ratio 24 (6-26); Blood Urea Nitrogen 16 mg/dL (7-20); Calcium 8.9 mg/dL (8.6-10.8); Carbon Dioxide 26 mEq/L (19-29); Chloride 107 mEq/L (98-109); Glucose 103 mg/dL (70-99); Osmolality,Calculated 293 (280-300); Potassium 4.1 mEq/L (3.5-4.5); Sodium 141 mEq/L (136-145); eGFR For African Americans > 60 (> 60); eGFR For Non-African Americans > 60 (> 60)
[2016-12-05] MEDS: *HR* Heparin 5,000 UNIT/ML VIAL SQ SCH ×2 (06:17→19:00)
[2016-12-05] MEDS: Cefdinir 300 MG CAPSULE PO SCH ×2 (08:22→19:00)
[2016-12-05] MEDS: Aspirin 81 MG TAB.CHEW PO SCH (08:23)
[2016-12-05] MEDS: Loratadine 10 MG TABLET PO SCH (08:23)
--- NOTE | 2016-12-05 12:59 | Discharge Summary ---
<BurtonRody Rosi - Last Filed: 12/05/16 13:20> Date of Encounter: 12/05/16 Time of Encounter: 12:48 - Discharge Diagnosis (1) Aortic stenosis Priority: Primary Status: Chronic Qualifiers: Cardiac valve disease etiology: etiology unspecified Qualified Code(s): I35.0 - Nonrheumatic aortic (valve) stenosis (2) NSTEMI (non-ST elevated myocardial infarction) Priority: Primary Status: Acute (3) Atrial fibrillation with RVR Priority: Primary Status: Acute (4) UTI (urinary tract infection) Priority: Primary Status: Acute Qualifiers: Urinary tract infection type: acute cystitis Hematuria presence: without hematuria Qualified Code(s): N30.00 - Acute cystitis without hematuria (5) Acute maxillary sinusitis, unspecified Priority: Secondary Status: Acute Qualifiers: Recurrence: not specified as recurrent Qualified Code(s): J01.00 - Acute maxillary sinusitis, unspecified (6) Dementia Priority: Secondary Status: Chronic Qualifiers: Dementia type: vascular dementia Dementia behavioral disturbance: without behavioral disturbance Qualified Code(s): F01.50 - Vascular dementia without behavioral disturbance (7) Closed head injury Priority: Secondary Status: Chronic Qualifiers: Encounter type: initial encounter Qualified Code(s): S09.90XA - Unspecified injury of head, initial encounter (8) DVT prophylaxis Priority: Secondary Status: Acute - Discharge Medications Prescriptions: Nitroglycerin 0.4 mg SL Q5MIN PRN #10 tab.subl PRN Reason: Chest Pain Aspirin 81 mg PO DAILY #30 tab.chew Carvedilol [Coreg] 3.125 mg PO BIDWM #60 tablet Cefdinir [Omnicef] 300 mg PO BID #10 capsule Lisinopril [Zestril] 2.5 mg PO DAILY #30 tablet Simvastatin [Zocor] 40 mg PO HS #30 tablet Home Medications: Aspirin 81 mg PO DAILY #30 tab.chew 12/05/16 [Rx] Carvedilol [Coreg] 3.125 mg PO BIDWM #60 tablet 12/05/16 [Rx] Cefdinir [Omnicef] 300 mg PO BID #10 capsule 12/05/16 [Rx] Docusate [Colace] 100 mg PO BID PRN #0 capsule 12/05/16 [Rx] Lisinopril [Zestril] 2.5 mg PO DAILY #30 tablet 12/05/16 [Rx] Loratadine [Claritin] 10 mg PO DAILY tablet 12/05/16 [Rx] Nitroglycerin 0.4 mg SL Q5MIN PRN #10 tab.subl 12/05/16 [Rx] Omeprazole [PriLOSEC] 20 mg PO DAILY@0630 capsule.dr 12/05/16 [Rx] Simvastatin [Zocor] 40 mg PO HS #30 tablet 12/05/16 [Rx] Allergies/Adverse Reactions: Allergies No Known Allergies Allergy (Verified 11/29/16 19:33) Procedures/tests Complete & Pending: Procedures Performed prior 72 hours Category Date Time Status ECG 12 lead ECG [ECG] Routine Y 12/04/16 02:59 Completed Date of admission: 12/01/16 15:47 Primary care physician: KALPESH JIMENEZ Discharging clinician: Kahlil Lacy Anticipated date of discharge: 12/05/16 - Patient Status Disposition: Home, Self-Care Condition: Fair Functional capacity at discharge: independent ambulation Overall status at discharge: patient is progressing back to baseline - Discharge Instructions Follow Up With: KALPESH JIMENEZ [Other] Minerva Amato, BETTE [Partnered Physician] - 12/23/16 4:00 pm Additional Instructions: Patient is being discharged to daughter who is agreeing to take personal responsibility of 03/05 care of patient. Patient will need to establish with neurologist in [place], [place] once daughter has made arrangements for assisted-living. - Diet and Activity Activity: increase activity as tolerated Diet: advance to your usual diet Hospital course: Ms. Mcdermott is a 86 year old female who presented at the hospital 11/29/16 by EMS with complaint of syncope in grocery store. Patient landed on left temporal head and was unconscious for an undocumented period of time. Upon admission, she had elevated troponins and was diagnosed with an NSTEMI and was placed on heparin drip, which was discontinued 12/01. Additional findings on admission include Afib with RVR for which patient was placed on cardizem drip. HR now controlled on BB. Patient was not a suitable candidate for anticoagulation due to history of falls and dementia. Echo with critical , MG 104mmHg, Peak velocity 6.62m/s, LVEF 60-65%, moderate LVDD, severly dilated LA and moderately dilated RA. Critical likely predisposing factor for patient's episode of syncope. Family requested medical management of . Cardiology recommended TAVR at [facility] as an out-patient if family desires. Family was made aware of this recommendation. Due to cognitive impairment, patient is not capable of decision making and will benefit from assisted-living or 24/7 nursing care for her safety. Her dementia will require further management by neurology. Her aortic stenosis will require further management by cardiology. She will be discharged to the custody of her daughter, Tahira, who is presently making living arrangements for Mrs. Mcdermott. - Time Spent with Patient Total time spent providing and/or coordinating discharge services: - Constitutional Vitals: Temp Pulse Resp BP Pulse Ox 98.2 F 69 16 119/88 94 L 12/05/16 12:15 12/05/16 12:15 12/05/16 12:15 12/05/16 12:15 12/05/16 12:15 General appearance: Present: cachectic, cooperative, A&O X 1 (not oriented to place or time. However, she does know that she has 2 children which are male and female. She states that her 's name was Jose and that she traveled with her for work. She does not answer question when asked what Jose does.), disheveled, no acute distress, underweight - Head Head exam: Present: atraumatic, normocephalic - Eye Eye exam: Present: EOMI, PERRL, conjuntiva pink, sclera anicteric - Neck Neck exam general surgery: Present: supple, trachea midline. Absent: lymphadenopathy - Respiratory Respiratory exam: Present: CTAB. Absent: accessory muscle use, rales, rhonchi, wheezes - Cardiovascular Cardiovascular exam: Present: irregular rhythm, RRR, systolic murmur (5/6 systolic murmur with ). Absent: diastolic murmur, gallop, rubs - GI/Abdominal GI/Abdominal exam: Present: normal bowel sounds, soft, no peritoneal signs. Absent: distended, tenderness - Extremities Exam Extremities exam: Present: warm, radial pulses palpable and symetrical. Absent : calf tenderness, cyanotic, pedal edema - Neurological Exam Neurological exam: Present: CN II-XII intact, oriented X3, no focal deficits. Absent: pronater drift, facial droop, speech deficit - Psychiatric Psychiatric exam: Present: anxious (Patient with thought-blocking, confabulation. Unable to recall names of common household items including: faucet, clock, hairbrush. Unable to recall name of late-. When asked about the ages of her children, she responds, "I don't know their ages. That is their business. You know why I don't know their ages? Because I do not care about their ages. I have too much other stuff going on." ) - Skin Skin exam: Present: dry, intact - Other Additional findings: Chest X-Ray 11/29/16 19:38 IMPRESSION: 1. No acute cardiopulmonary process. 2. Cardiomegaly. 3. Chronic lung changes likely reflecting COPD. 4. Osteopenia. D/ / Evans Palacio MD / Evans Palacio MD Interpreting Provider: Evans Palacio MD Head CT 11/29/16 19:39 IMPRESSION: Mild left temporal scalp subcutaneous soft tissue swelling. No acute intracranial abnormality. Mild parenchymal volume loss. Moderate chronic microvascular disease. Right maxillary sinusitis. D/ / Tyson Carolina MD / Tyson Carolina MD Interpreting Provider: Tyson Carolina MD Cervical Spine CT 11/29/16 19:40 IMPRESSION: No acute abnormality of the cervical spine. Mild height loss of the T1 vertebral body, although age-indeterminate, likely chronic. Mild chronic height loss of C5, C6 and C7 vertebral bodies. D/ / Tyson Carolina MD / Tyson Carolina MD Interpreting Provider: Tyson Carolina MD Thyroid Ultrasound 11/30/16 14:00 IMPRESSION: 1. Diffuse thyroid disease 2. Bilateral thyroid nodules. Recommend follow-up ultrasound in 1 year D/ / Angus Moise MD / Angus Moise MD Interpreting Provider: Angus Moise MD - Attending Attestation I examined this patient and my medical decision-making was reviewed with the WEB PRESS OPERATOR ASSISTANT/PA/Advanced Practice Nurse/Resident Physician. I agree with the documented findings, disposition and treatment plan as described except to the extent set forth below. <Kahlil Lacy - Last Filed: 12/05/16 16:42> Date of Encounter: 12/05/16 Procedures/tests Complete & Pending: Procedures Performed prior 72 hours Category Date Time Status ECG 12 lead ECG [ECG] Routine Y 12/04/16 02:59 Completed Date of admission: 12/01/16 15:47 Primary care physician: KALPESH JIMENEZ [facility] course: Ms. Mcdermott is a 86 year old female - Time Spent with Patient Total time spent providing and/or coordinating discharge services: - Constitutional Vitals: Temp Pulse Resp BP Pulse Ox 97.8 F 70 17 103/94 95 12/05/16 15:19 12/05/16 15:19 12/05/16 15:19 12/05/16 15:19 12/05/16 15:19 - Attending Attestation I examined this patient and my medical decision-making was reviewed with the WEB PRESS OPERATOR ASSISTANT/PA/Advanced Practice Nurse/Resident Physician. I agree with the documented findings, disposition and treatment plan as described except to the extent set forth below. Stable for D/c, will be discharged under supervision of her daughter today. Afib and aortic stenosis, uti treated.
[2016-12-05 15:20] VITALS: BP 103/94
[2016-12-06] MEDS: Levalbuterol Neb 0.63 MG/3 ML IH SCH (04:43)
== END 2016-12-05 19:15 | disposition home or self-care (01) | DRG 280 ==
LOC: EMEROO 19:32 → 2NNU 19:32 → SUATTDRO 21:19 → 2NNU 22:29 → SUATTDRO 12-01 15:47 → 3ANU 12-03 13:47
PROVIDERS: ADMIT Family Medicine; ATTEND Internal Medicine